=== PATIENT | male | born 1945 | race Caucasian/White ===

== ENCOUNTER → 2016-11-17 | Outpatient (CLI) | payer OTHER | LOC: FIMAGING 09:34 | DX: R10.11 Right upper quadrant pain (principal); K76.0 Fatty (change of) liver, not elsewhere classified; R94.5 Abnormal results of liver function studies ==

== ENCOUNTER 2018-09-21 10:44 | Inpatient (IN) | payer OTHER ==
--- NOTE | 2018-09-21 10:59 | PDHPUP ---
History & Physical Update H&P update statement: This history and physical update is based on an assessment of the patient which was completed after admission or registration (within 24 hours), but prior to the surgery/procedure. H&P update: H&P reviewed & patient examined, no change in patient's condition since H&P completed
[2018-09-21] MEDS ORDERED: ceFAZolin 2 GM/DEXTROSE 100 ML IV ONE (11:03)
[2018-09-21] MEDS ORDERED: LIDOCAINE 1% 2 ML INJ ID PRN (11:04)
[2018-09-21] MEDS ORDERED: LR 1,000 ML IV ONE (11:04)
[2018-09-21] MEDS ORDERED: BUPIVACAINE 0.5% 30 ML SDV ONE (11:38)
[2018-09-21] MEDS ORDERED: HYDROCODONE/APAP 5/325 TAB PO PRN (12:27)
[2018-09-21] MEDS ORDERED: ACETAMINOPHEN 500 MG TAB PO PRN ×2 (12:27→13:17)
[2018-09-21] MEDS ORDERED: NALOXONE HCL 0.4 MG/ML INJ IVP PRN (12:27)
[2018-09-21] MEDS ORDERED: PROMETHAZINE HCL 25 MG/ML INJ IVP PRN (12:27)
[2018-09-21] MEDS ORDERED: ONDANSETRON 4 MG/2 ML VIAL IVP PRN (12:27)
[2018-09-21] MEDS ORDERED: fentaNYL 100 MCG/2 ML INJ IVP PRN (12:27)
[2018-09-21] MEDS ORDERED: MEPERIDINE 25 MG/0.5 ML AMP IVP PRN (12:27)
--- NOTE | 2018-09-21 12:27 | PDANEPAE ---
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 - Pulmonary History Hx COPD: No Hx Asthma/Reactive Airway Disease: No Hx Recent Upper Respiratory Infection: Yes Hx Oxygen in Use at Home: Yes O2 in Use at Home (L/minute): 3.5 Hx Sleep Apnea: Yes Sleep Apnea Screening Result - Last Documented: Positive Pulmonary History Comment: pnermonia tx'd with antibiotics - Neurologic History Hx Cerebrovascular Accident: Yes Hx Seizures: No Hx Dementia: No Neurologic History Comment: 2014 - Endocrine History Hx Diabetes: Yes Obesity: moderate Endocrine History Comment: hypothyroid - Renal History Hx Renal Disorders: No - Liver History Hx Hepatic Disorders: No - Neurological & Psychiatric Hx Hx Neurological and Psychiatric Disorders: No - Cancer History Hx Cancer: No - Congenital Disorder History Hx Congenital Disorders: No - GI History Hx Gastrointestinal Disorders: No - Chronic Pain History Chronic Pain: No - Surgical History Prior Surgeries: 2 open heart surgeries, mitral valve repair triple, roght leg wound surgery, hernia x 2, ANE Review of Systems Review of Systems: - Exercise capacity METS (RN): 3 METS ANE Patient History - Allergies Allergies/Adverse Reactions: codeine Allergy (Verified 09/21/18 11:20) Vomiting dapagliflozin propanediol [From [facility]] Allergy (Verified 09/21/18 11:20) morphine Allergy (Verified 09/21/18 11:20) Vomiting Penicillins Allergy (Verified 09/21/18 11:20) Swelling/neck,face,throat Sulfa (Sulfonamide Antibiotics) Allergy (Verified 09/21/18 11:20) Swelling/neck,face,throat - Home Medications Home medications: home medication list seen and reviewed Home Medications: Ascorbic Acid [Vitamin C 500 mg (*)] 1,000 mg PO DAILY 03/23/16 [Last Taken ] Carvedilol [Coreg (*)] 25 mg PO BIDMEAL 03/23/16 [Last Taken 09/21/18] Cholecalciferol Vit D3 [Vitamin D3 (*)] 2,000 units PO DAILY 03/23/16 [Last Taken 09/20/18] Cyanocobalamin [Vitamin B12 (*)] 1,000 mcg PO DAILY 03/23/16 [Last Taken ] Diltiazem HCl [Cartia XT 240mg] 240 mg PO BIDMEAL 03/23/16 [Last Taken 09/21/18] Furosemide [Lasix 20 MG (*)] 20 mg PO DAILY 03/23/16 [Last Taken 09/20/18] Herbals/Supplements -Info Only 1 each PO DAILY 03/23/16 [Last Taken 03/23/16] Metformin HCl [Metformin 1000 mg] 1,000 mg PO BIDMEAL 03/23/16 [Last Taken 09/20 09:00] Prazosin HCl 5 mg PO BIDMEAL 03/23/16 [Last Taken 09/20/18 09:00] Rivaroxaban [Xarelto] 20 mg PO HS 03/23/16 [Last Taken 09/20/18] glipiZIDE [Glipizide] 10 mg PO BIDMEAL 03/23/16 [Last Taken 09/20/18 09:00] Acetaminophen [Tylenol ES 500 mg (*)] 500 mg PO TID PRN 09/20/18 [Last Taken 21:00] Aspirin [Aspirin 81mg (*)] 81 mg PO DAILY 09/21/18 [Last Taken 09/20/18] Atorvastatin Calcium [Lipitor 40 mg (*)] 80 mg PO DAILY18 09/21/18 [Last Taken 09/19/18] Ferrous Sulfate [Ferrous Sulf 325 MG (*)] 325 mg PO DAILY 09/21/18 [Last Taken 09/20/18] Irbesartan [Avapro 150 mg (*)] 300 mg PO DAILY 09/21/18 [Last Taken 09/21/18] - NPO status NPO Status: no food or drink >8 hours NPO Since - Liquids (Date): 09/21/18 NPO Since - Liquids (Time): 08:00 NPO Since - Solids (Date): 09/20/18 NPO Since - Solids (Time): 19:30 - Anes Hx Anes Hx: no prior problems - Smoking Hx Smoking Status: Former smoker - Family Anes Hx Family Hx Anesthesia Complications: none ANE Labs/Vital Signs - Labs Result Diagrams: 09/21/18 11:40 - Vital Signs Blood Pressure: 67/43 Heart Rate: 84 Respiratory Rate: 18 O2 Sat (%): 95 Height: 162.56 cm Weight: 101.151 kg ANE Physical Exam - Airway Mallampati Score: Class 3 Mouth exam: dentures - Pulmonary Pulmonary: no respiratory distress, no rales or rhonchi, clear to auscultation - Cardiovascular Cardiovascular: irregularly irregular - ASA Status ASA Status: III ANE Anesthesia Plan Anesthesia Plan: MAC
[2018-09-21] MEDS ORDERED: fentaNYL 100 MCG/2 ML INJ ONE (12:31)
[2018-09-21] MEDS ORDERED: PROPOFOL 200 MG/20 ML VIAL ONE (12:31)
[2018-09-21] MEDS ORDERED: LIDOCAINE 2% 5 ML SDV ONE (12:44)
[2018-09-21] MEDS ORDERED: LIDOCAINE 1% 300 MG/30 ML SDV ONE (12:51)
--- NOTE | 2018-09-21 13:17 | POSTOPPROG ---
Post Op Note Date of Operation: 09/21/18 Surgeon: Anibal Garza Anesthesiologist: Tawanna Anesthesia: IV Sedation Pre-op Diagnosis: Left lower leg wound Post-op Diagnosis: same Procedure: excisional skin debridement 4x6cm down to muscle Findings: necrotic area removed, underying tissue well pefused and pink Inf/Abcess present in the surg proc area at time of surgery?: No EBL: Minimal Drains: Wound Vac Specimen(s): left lower leg skin
[2018-09-21] MEDS ORDERED: HYDROmorphONE/DILAUDID 1 MG/ML INJ IVP PRN (13:19)
--- NOTE | 2018-09-21 13:23 | POSTANESTH ---
Post Anesthetic Evaluation Cardiovascular Status: Similar to Pre-Op Cond Respiratory Status: Similar to Pre-op Cond. Level of Consciousness/Mental Status: Can Participate in Eval, Moderately Sleepy Pain Control: Adequate, Prn Tx Ordered Nausea/Vomiting Control: Adequate, Prn Tx Ordered Complications Possibly Related to Anesthesia: None Noted
[2018-09-21] MEDS ORDERED: NS 1,000 ML IV SCH (13:30)
[2018-09-21] MEDS: PRAZOSIN HCL 5 MG CAP PO SCH (18:29)
[2018-09-21] MEDS: glipiZIDE 10 MG TAB PO SCH (18:29)
[2018-09-21] MEDS: CARVEDILOL 25 MG TAB PO SCH (18:30)
[2018-09-21] MEDS: metFORMIN HCL 500 MG TAB PO SCH (18:32)
[2018-09-21] MEDS: ATORVASTATIN CALCIUM 40 MG TAB PO SCH (18:32)
[2018-09-21] MEDS: DILTIAZEM XR 240 MG CAP PO SCH (18:32)
[2018-09-21] MEDS: oxyCODONE IR 5 MG TAB PO PRN (18:33)
[2018-09-21] MEDS: RIVAROXABAN 20 MG TAB PO SCH (20:38)
[2018-09-21] MEDS: ACETAMINOPHEN 325 MG TAB PO PRN (20:38)
[2018-09-22] MEDS: oxyCODONE IR 5 MG TAB PO PRN ×4 (04:45→18:40)
[2018-09-22 05:07] LABS: PLATELET COUNT 200 10^3/uL (150-400)
[2018-09-22] MEDS ORDERED: Herbals/Supplements -Info Only PO SCH (09:00)
[2018-09-22] MEDS: FUROSEMIDE 20 MG TAB PO SCH (09:16)
[2018-09-22] MEDS: ASPIRIN 81 MG CHEWABLE TAB PO SCH (09:16)
[2018-09-22] MEDS: ASCORBIC ACID 500 MG TAB PO SCH (09:17)
[2018-09-22] MEDS: glipiZIDE 10 MG TAB PO SCH ×2 (09:17→18:25)
[2018-09-22] MEDS: PRAZOSIN HCL 5 MG CAP PO SCH ×2 (09:17→18:23)
[2018-09-22] MEDS: CHOLECALCIFEROL VIT D3 1,000 UNITS TAB PO SCH (09:17)
[2018-09-22] MEDS: FERROUS SULFATE 325 MG TAB PO SCH (09:17)
[2018-09-22] MEDS: CYANO/VITAMIN B12 1000 MCG TAB PO SCH (09:18)
[2018-09-22] MEDS: DILTIAZEM XR 240 MG CAP PO SCH ×2 (09:18→18:25)
[2018-09-22] MEDS: CARVEDILOL 25 MG TAB PO SCH ×2 (09:19→18:23)
[2018-09-22] MEDS: metFORMIN HCL 500 MG TAB PO SCH ×2 (09:20→18:25)
[2018-09-22] MEDS ORDERED: HYDROmorphONE/DILAUDID 1 MG/ML INJ IVP ONE (11:30)
[2018-09-22] MEDS: IRBESARTAN 150 MG TAB PO SCH (12:06)
--- NOTE | 2018-09-22 12:19 | ASMTCMCOM ---
CM Note CM Note Notes: Reviewed chart, pt admitted for scheduled surgery for LE wound. He will go to surgery for debridement and wound vac placement. Dc needs unclear, CM w/f. Lives at home with his . DC Plan: TBD Date Signed: 09/22/2018 12:18 PM Electronically Signed By:Gretel Escoto RN
[2018-09-22] MEDS: ACETAMINOPHEN 325 MG TAB PO PRN ×2 (14:15→22:27)
--- NOTE | 2018-09-22 14:51 | SOAPPROG ---
SOAP Progress Note Assessment/Plan: Assessment: 73yo M s/p LLE debridement for chronic, non-healing wound - vitals are stable - when not manipulated, he has little pain. He accidently removed the suction connection earlier today. RN had to re-do the VAC, this was excruciatingly painful and required IV narcotics - setting up home care and VAC - will stay in hospital for IV pain control. Will likely stay until Tuesday and we rechange the VAC to see if he tolerates it any better, he has a very low pain tolerance Plan: 09/22/18 14:49 Subjective: pulled juan diego pad out of VAC today Objective: Vital Signs Temp Pulse Resp BP Pulse Ox 36.8 C 79 16 135/71 H 96 09/22/18 12:00 09/22/18 12:00 09/22/18 12:00 09/22/18 12:06 09/22/18 12:00 Microbiology 09/21/18 13:01 Gram Stain - Final Leg - Eswab 09/21/18 13:01 Mycobacterial Smear (JAMI) - Final Leg - Eswab Mycobacterial Culture - Final Laboratory Results 09/22/18 04:14 09/22/18 04:14 ICD10 Worksheet Patient Problems: Problems Problem Status Onset Cellulitis Acute Decubitus ulcer Acute Ulcer of leg, chronic, right Acute
--- NOTE | 2018-09-22 16:07 | ASMTCMCOM ---
CM Note CM Note Notes: Spoke w/surgeon, pt will need home wound vac. Paperwork filled out and signed by ART CRUM faxed to [facility]. Per MD, pt will be here through Tuesday. Met with pt and , want to make sure homecare is in network, CM sent referral to [facility] but they don't have staffing, CM sent other refferals. DC Plan:Home care Date Signed: 09/22/2018 04:06 PM Electronically Signed By:Gretel Escoto RN
--- NOTE | 2018-09-22 17:15 | PDMN ---
Medical Necessity Medical necessity: Pt meets inpt criteria per MD order and 73 y/o w/LLE chronic/ non-healing wound admitted 09/21/18 for LLE wound surg: excisional skin debridement 4x6cm down to muscle, necrotic area removed, wound vac applied. Upgraded to inpt for control of severe pain requiring IV pain meds in addition to PO pain meds, required wound vac re-do today as pt accidentally removed suction connection today. PMHx includes afib, DM type 2, chronic kidney disease , HTN, stroke, HLD, PA, infectious endocarditis, cardiac bypass in 1999, wound debridement, skin graft to RLE. Est LOS>2MN for ongoing wound care and pain management.
--- NOTE | 2018-09-22 17:17 | ASMTCMCOM ---
CM Note CM Note Notes: Patient has been accepted by [facility], please call Yesenia with any questions [phone]. DC Plan: Home w/[facility] and wound vac ([facility]) Date Signed: 09/22/2018 05:16 PM Electronically Signed By:Gretel Escoto RN
[2018-09-22] MEDS: ATORVASTATIN CALCIUM 40 MG TAB PO SCH (18:25)
[2018-09-22] MEDS: RIVAROXABAN 20 MG TAB PO SCH (21:59)
[2018-09-23] MEDS: ACETAMINOPHEN 325 MG TAB PO PRN ×2 (02:56→15:34)
[2018-09-23] MEDS: CARVEDILOL 25 MG TAB PO SCH ×2 (08:56→18:24)
[2018-09-23] MEDS: DILTIAZEM XR 240 MG CAP PO SCH ×2 (08:56→18:23)
[2018-09-23] MEDS: glipiZIDE 10 MG TAB PO SCH ×2 (08:56→18:23)
[2018-09-23] MEDS: CYANO/VITAMIN B12 1000 MCG TAB PO SCH (08:57)
[2018-09-23] MEDS: PRAZOSIN HCL 5 MG CAP PO SCH ×2 (08:57→18:24)
[2018-09-23] MEDS: metFORMIN HCL 500 MG TAB PO SCH ×2 (08:57→18:23)
[2018-09-23] MEDS: ASPIRIN 81 MG CHEWABLE TAB PO SCH (08:57)
[2018-09-23] MEDS: ASCORBIC ACID 500 MG TAB PO SCH (08:57)
[2018-09-23] MEDS: CHOLECALCIFEROL VIT D3 1,000 UNITS TAB PO SCH (08:57)
[2018-09-23] MEDS: FERROUS SULFATE 325 MG TAB PO SCH (08:58)
[2018-09-23] MEDS: IRBESARTAN 150 MG TAB PO SCH (08:58)
[2018-09-23] MEDS: FUROSEMIDE 20 MG TAB PO SCH (09:41)
[2018-09-23] MEDS: oxyCODONE IR 5 MG TAB PO PRN ×3 (09:41→18:24)
--- NOTE | 2018-09-23 12:54 | SOAPPROG ---
SOAP Progress Note Assessment/Plan: Assessment: 73yo M s/p LLE debridement for chronic, non-healing wound - vitals are stable - a little bit more painful today, output is minimal and serosanguineous. - the wound is buttressed appropriately, I have subsequently placed a supplemental boot to that extremity as well which I think will help as he shuffles his feet a lot when he is in bed. - given pain, needs to stay here until VAC change on Tuesday. Plan: 09/22/18 14:49 09/23/18 12:53 Subjective: Doing well, VAC is holding Objective: Vital Signs Temp Pulse Resp BP Pulse Ox 36.5 C 89 16 135/85 H 97 09/23/18 07:06 09/23/18 08:56 09/23/18 07:06 09/23/18 08:58 09/23/18 07:06 Microbiology 09/21/18 13:01 Gram Stain - Final Leg - Eswab Laboratory Results 09/22/18 04:14 09/22/18 04:14 09/22/18 09/23/18 09/24/18 05:59 05:59 05:59 Intake Total 350 Output Total 250 Balance 100 ICD10 Worksheet Patient Problems: Problems Problem Status Onset Cellulitis Acute Decubitus ulcer Acute Ulcer of leg, chronic, right Acute
[2018-09-23] MEDS: ATORVASTATIN CALCIUM 40 MG TAB PO SCH (18:23)
[2018-09-23] MEDS: ONDANSETRON 4 MG/2 ML VIAL IVP PRN (18:24)
[2018-09-23] MEDS: RIVAROXABAN 20 MG TAB PO SCH (20:16)
[2018-09-24] MEDS: oxyCODONE IR 5 MG TAB PO PRN ×4 (06:28→21:58)
[2018-09-24] MEDS: ONDANSETRON DISINTEGRATING 4 MG TAB PO PRN ×4 (06:30→21:59)
[2018-09-24] MEDS: ONDANSETRON 4 MG/2 ML VIAL IVP PRN ×3 (06:41→22:15)
[2018-09-24] MEDS: ASCORBIC ACID 500 MG TAB PO SCH (09:06)
[2018-09-24] MEDS: CHOLECALCIFEROL VIT D3 1,000 UNITS TAB PO SCH (09:06)
[2018-09-24] MEDS: CARVEDILOL 25 MG TAB PO SCH ×2 (09:06→17:53)
[2018-09-24] MEDS: IRBESARTAN 150 MG TAB PO SCH (09:07)
[2018-09-24] MEDS: glipiZIDE 10 MG TAB PO SCH ×2 (09:07→17:53)
[2018-09-24] MEDS: DILTIAZEM XR 240 MG CAP PO SCH ×2 (09:07→17:53)
[2018-09-24] MEDS: CYANO/VITAMIN B12 1000 MCG TAB PO SCH (09:07)
[2018-09-24] MEDS: FUROSEMIDE 20 MG TAB PO SCH (09:07)
[2018-09-24] MEDS: PRAZOSIN HCL 5 MG CAP PO SCH ×2 (09:08→17:53)
[2018-09-24] MEDS: FERROUS SULFATE 325 MG TAB PO SCH (09:08)
[2018-09-24] MEDS: ASPIRIN 81 MG CHEWABLE TAB PO SCH (09:08)
[2018-09-24] MEDS: metFORMIN HCL 500 MG TAB PO SCH ×2 (09:08→17:53)
--- NOTE | 2018-09-24 09:30 | SOAPPROG ---
SOAP Progress Note Assessment/Plan: Assessment: 73yo M s/p LLE debridement for chronic, non-healing wound - vitals are stable - refusing narcotic pain meds - restless - VAC looks good, change tomorrow. Hopefully will go well and dc after that c home care Plan: 09/22/18 14:49 09/23/18 12:53 09/24/18 09:29 Subjective: didnt sleep much last night, refusing pain meds Objective: Vital Signs Temp Pulse Resp BP Pulse Ox 37.1 C 89 16 116/90 H 91 L 09/24/18 07:02 09/24/18 09:07 09/24/18 07:02 09/24/18 09:07 09/24/18 07:02 Microbiology 09/21/18 13:01 Gram Stain - Final Leg - Eswab Laboratory Results 09/22/18 04:14 09/22/18 04:14 09/23/18 09/24/18 09/25/18 05:59 05:59 05:59 Intake Total 350 1000 Output Total 250 Balance 100 1000 ICD10 Worksheet Patient Problems: Problems Problem Status Onset Cellulitis Acute Decubitus ulcer Acute Ulcer of leg, chronic, right Acute
[2018-09-24] MEDS: ATORVASTATIN CALCIUM 40 MG TAB PO SCH (17:53)
--- NOTE | 2018-09-24 20:27 | GOP ---
[f rep st] OPERATIVE REPORT DATE OF OPERATION: 09/21/2018 SURGEON: Anibal Garza MD INSTRUCTOR BRIDGE: None. ANESTHESIA: IV sedation. ANESTHESIOLOGIST: Jimmie Stacy MD. PREOPERATIVE DIAGNOSIS: Chronic nonhealing left lower leg wound. POSTOPERATIVE DIAGNOSIS: Chronic nonhealing left lower leg wound. PROCEDURE PERFORMED: Excisional skin debridement 4 x 6 cm down to exposed muscle. FINDINGS: Necrotic area removed. Underlying tissue was well perfused and pink with good healthy-kim earing muscle. SPECIMENS: Left lower leg skin. ESTIMATED BLOOD LOSS: 10 cc. DESCRIPTION OF PROCEDURE: The patient was greeted in the preoperative suite. Once again, risks, svetlana efits, and alternatives were discussed. Consent was signed. He was then brought back to the operati ve suite, placed on the OR table in supine position. After all anesthesia machines including SCDs we re on and functioning, World Health Organization time-out was performed. After successful induction of anesthesia, the patient's left lower leg was prepped and draped in typical sterile fashion. I com menced the procedure by making an elliptical incision around the necrotic area. I carried this down through the subcutaneous tissue down to good healthy appearing bleeding muscular tissue. The specime n was removed and passed off. Hemostasis was achieved with a combination of gentle pressure and elec trocautery. A wound VAC was then brought into place. The skin was successfully window framed and th e black sponge was placed to the area. It was attached to suction at 125 mmHg which was well tolerat ed by the patient. A field block was performed with 0.25% Marcaine without epinephrine. The patient was then gently awoken and taken from the operative suite to the PACU in satisfactory condition. DRAINS: None. INSTRUMENT COUNT: All counts were reported as correct x2. /[id number]/MODL
[2018-09-24] MEDS: RIVAROXABAN 20 MG TAB PO SCH (20:36)
[2018-09-25] MEDS: oxyCODONE IR 5 MG TAB PO PRN ×3 (02:52→14:23)
[2018-09-25] MEDS: ONDANSETRON DISINTEGRATING 4 MG TAB PO PRN ×3 (02:54→14:22)
[2018-09-25] MEDS: ONDANSETRON 4 MG/2 ML VIAL IVP PRN ×2 (03:20→10:26)
[2018-09-25] MEDS: metFORMIN HCL 500 MG TAB PO SCH (08:24)
[2018-09-25] MEDS: PRAZOSIN HCL 5 MG CAP PO SCH (08:25)
[2018-09-25] MEDS: CARVEDILOL 25 MG TAB PO SCH (08:25)
[2018-09-25] MEDS: DILTIAZEM XR 240 MG CAP PO SCH (08:25)
[2018-09-25] MEDS: CYANO/VITAMIN B12 1000 MCG TAB PO SCH (08:25)
[2018-09-25] MEDS: ASPIRIN 81 MG CHEWABLE TAB PO SCH (08:25)
[2018-09-25] MEDS: ASCORBIC ACID 500 MG TAB PO SCH (08:25)
[2018-09-25] MEDS: CHOLECALCIFEROL VIT D3 1,000 UNITS TAB PO SCH (08:26)
[2018-09-25] MEDS: glipiZIDE 10 MG TAB PO SCH (08:26)
[2018-09-25] MEDS: IRBESARTAN 150 MG TAB PO SCH (08:26)
[2018-09-25] MEDS: FERROUS SULFATE 325 MG TAB PO SCH (08:26)
[2018-09-25] MEDS: FUROSEMIDE 20 MG TAB PO SCH (08:26)
[2018-09-25] MEDS ORDERED: LIDOCAINE 2% JELLY 20 ML (UROJECT) UR ONE (09:00)
[2018-09-25] MEDS ORDERED: LIDOCAINE HCL 4% TOPICAL SOLN 50ML TP ONE (09:25)
[2018-09-25] MEDS ORDERED: HYDROmorphONE/DILAUDID 1 MG/ML INJ IVP PRN (09:29)
[2018-09-25 11:05] VITALS: BP 156/71
--- NOTE | 2018-09-25 12:01 | PDIAF ---
- Diagnosis Diagnosis: Left lower leg non-healing wound Code Status: Full Code - Medication Management Discharge Medications: electronically signed and located in the Home Medication List. - Orders Services needed: Home Care, Registered Nurse Home Care Face to Face: I certify that this patient was under my care and that I had the required [id number] encounter meeting the encounter requirements on the discharge day. My findings support the fact that the patient is homebound as defined in Home Care Face to Face Continued: CMS Chapter 7 Medicare Benefits Manual 30.1.1 , The condition of the patient is such that there exists a normal inability to leave home and consequently, leaving home would require a considerable and taxing effort. Diet Recommendation: no restrictions on diet Diet Texture: Regular Texture Diet Additional Instructions: Keep the VAC on at all times, you can bathe as long as the area does not get wet Ibuprofen and Tylenol as needed for pain, Oxycodone for breakthrough Take 10mg oxycodone 45 minutes before VAC changes are scheduled Home health will change the VAC 3x week, [facility] next week for re-eval - Follow Up Care Current Providers and Referrals: [facility] [Other] W[facility] Healing Center,[facility] [Clinic] - (make an appt with me next week on the 3rd for re-eval)
--- NOTE | 2018-09-25 12:22 | WOCRNPDOC ---
WOCRN Advanced Assessment Note - Skin Integrity Problem, Advanced Assess Left Lower Lateral Leg Surgical Wound/Incision Dressing Type: Black Vac Foam, Wound Vac Dressing Description: Clean/Dry, Intact Integumentary Issue Intervention: Dressing Changed Tomas Wound Tissue: Ecchymotic (at 9, 10 and 2-3 oclock) Wound Bed Constitution: Granulation Tissue (10%), Smooth Tissue (10%), Tendon ( 20%), Muscle (60%) Wound Edges: Attached, Well Defined Site Odor: None Site Measurement - Head-to-Toe Length X Width X Depth (cm): 6.5x4.7x0.4 Skin Integrity Problem Comment: Lidocaine 4% instilled into vac dressing prior to removal for pain management. Wound cleaned with ns and gauze. Skin prep and draped tomas wound. One piece small white foam placed to cover tendon and one piece small [place] black foam placed overall. Suction at -125 mm Hg with no leaks noted. BRIDGER Mcmahon and at bedside for change. Dr Garza in at end and aware of findings. Overall tolerated well by patient. Wound care will follow. Next vac change tuesday.
--- NOTE | 2018-09-25 12:40 | ASDISCHSUM ---
Discharge Information Plan Status:Home with Home Health Medically Cleared to Leave:09/25/2018 Discharge Date:09/25/2018 CM D/C Disposition:Home Health Service ADT D/C Disposition:Home Health Service Projected Discharge Date:09/25/2018 11:00 AM Transportation at D/C:Family Discharge Delay Reason: Follow-Up Date:09/25/2018 11:00 AM Discharge Slot: Final Diagnosis: Placement Information Referral Type:*Home Health Care Services Referral ID:[id number] Provider Name:[facility] [place] Address 1:[address] Phone Number: Address 2: Fax Number: [facility]:[place] Selection Factors: State:[place] Patient Contact Information Contact Name:MERCEDES Relationship: Address:[address] City:[place] Alternate Phone: State/Zip Code:[place] [address] Email: Financial Information Financial Class:[employer] [facility] Primary Plan Number:[id number] Secondary Plan Desc:MEDICARE INPATIENT Secondary Plan Number:[id number] Assessment Information LACE LACE Length of stay for Answers: 3 days current admission Acuity / Level of Answers: Yes Care: Did the patient have an inpatient admission? Comorbidities - select Answers: Cerebrovascular disease all that apply (CVA, TIA, aneurysms, vasc ular dementia) Diabetes (uncontrolled or controlled) Moderate or severe liver or renal disease Other Notes: Afib # of Emergency department Answers: 0 visits in the last 6 months Score: 13 Date Signed: 09/25/2018 12:38 PM Electronically Signed By:ANNIE Brown [facility] CM Progress Note CM Note CM Note Notes: Reviewed chart, pt admitted for scheduled surgery for LE wound. He will go to surgery for debridement and wound vac placement. Dc needs unclear, CM w/f. Lives at home with his . DC Plan: TBD Date Signed: 09/22/2018 12:18 PM Electronically Signed By:Gretel Escoto RN [facility] CM Progress Note CM Note CM Note Notes: Spoke w/surgeon, pt will need home wound vac. Paperwork filled out and signed by , ART faxed to [facility]. Per MD, pt will be here through Tuesday. Met with pt and , want to make sure homecare is in network, CM sent referral to [facility] but they don't have staffing, CM sent other refferals. DC Plan:Home care Date Signed: 09/22/2018 04:06 PM Electronically Signed By:Gretel Escoto RN [facility] Progress Note CM Note CM Note Notes: Patient has been accepted by [facility], please call Yesenia with any questions [phone]. DC Plan: Home w/[facility] and wound vac ([facility]) Date Signed: 09/22/2018 05:16 PM Electronically Signed By:Gretel Escoto RN Intervention Information
--- NOTE | 2018-09-26 10:38 | ASMTDCNOTE ---
Case Management Discharge Discharge Order Complete? Answers: Yes Patient to Obtain Answers: via Family Medications Transportation Arranged Answers: Family/Friends Discharge Comments Notes: Pt is discharging home today with his . D/C order, meds sent to [facility]. [facility] was notified by phone as well. Pt [facility]. [facility] paperwork signed and faxed to [employer]. Copy in chart and to pt. Pt's is transporting. Date Signed: 09/26/2018 10:32 AM Electronically Signed By:ANNIE Galeana
== END 2018-09-25 14:28 | disposition home health service (06) | DRG 581 ==
LOC: F3N 10:44 → F3E 13:33 → OBSVTOIN 09-22 16:58
PROVIDERS: ADMIT Surgery; ATTEND Surgery
PROC: 0KBT0ZZ Excision of Left Lower Leg Muscle, Open Approach (ICD-10-PCS; principal; 2018-09-21 12:30)
DX: L97.329 Non-pressure chronic ulcer of left ankle with unspecified severity (principal); I48.91 Unspecified atrial fibrillation; E11.9 Type 2 diabetes mellitus without complications; I12.9 Hypertensive chronic kidney disease with stage 1 through stage 4 chronic kidney disease, or unspecified chronic kidney disease; N18.9 Chronic kidney disease, unspecified; E03.9 Hypothyroidism, unspecified; E78.5 Hyperlipidemia, unspecified; I25.2 Old myocardial infarction; Z86.73 Personal history of transient ischemic attack (TIA), and cerebral infarction without residual deficits
CPT/HCPCS: 97116-GP; 97161-GP; 97530-GP; G0378; J0690; J1170; J2405; J2704; J3010

== ENCOUNTER 2018-10-07 12:32 | Emergency (ER) | payer OTHER ==
--- NOTE | 2018-10-07 13:05 | EDPHY ---
H & P Stated Complaint: Wound Check Time Seen by Provider: 10/07/18 12:40 HPI/ROS: [ CHIEF COMPLAINT: Worsening left leg wound HISTORY OF PRESENT ILLNESS: 73-year-old male with extensive medical history, most notably chronic wound to his left distal calf which is followed by the wound center. Patient had wound debridement in the operating room by Dr. Sean Forbes 09/21/2018 has been receiving home health care. Home health nurse became concerned about increasing area of necrotic appearing tissue to the wound which appears to have migrated medially and recommend he come to the ER for evaluation. The daughter who is a nurse at [employer] spoke with Dr. Ary Flores this morning who recommend she come to the ER for evaluation. PHYSICAL EXAM (Prior to examination, patient consented to physical exam, hands were washed and my usual and customary physical exam procedures followed) 1) GENERAL: Well-developed, well-nourished, alert and oriented. Appears to be in no acute distress. 2) HEAD: Normocephalic 3) HEENT: sclera anicteric 4) LUNGS: Breathing comfortably. 5) SKIN: Left lower extremity: The distal calf dorsal aspect circular lesion with no fetid odor, minimal drainage, no lymphangitic streaking, soft compartments, no crepitus. Necrotic appearing tissue on the periphery. - Personal History Current Tetanus/Diphtheria Vaccine: Unsure Current Tetanus Diphtheria and Acellular Pertussis (TDAP): Unsure - Medical/Surgical History Hx Asthma: No Hx Chronic Respiratory Disease: No Hx Diabetes: Yes Hx Cardiac Disease: Yes Hx Renal Disease: Yes Hx Cirrhosis: No Hx Alcoholism: No Hx HIV/AIDS: No Hx Splenectomy or Spleen Trauma: No Other PMH: AFIB/STENTS/BYPASS/Mitral valve repair/CVA/LEG ULCERS/INFECTIONS - Social History Smoking Status: Former smoker Constitutional: Initial Vital Signs Temperature (C) 36.5 C 10/07/18 12:37 Heart Rate 77 10/07/18 12:37 Respiratory Rate 18 10/07/18 12:37 Blood Pressure 97/51 L 10/07/18 12:37 O2 Sat (%) 95 10/07/18 12:37 O2 Delivery Mode Room Air Allergies/Adverse Reactions: codeine Allergy (Verified 09/21/18 11:20) Vomiting dapagliflozin propanediol [From [facility]] Allergy (Verified 09/21/18 11:20) morphine Allergy (Verified 09/21/18 11:20) Vomiting Penicillins Allergy (Verified 09/21/18 11:20) Swelling/neck,face,throat Sulfa (Sulfonamide Antibiotics) Allergy (Verified 09/21/18 11:20) Swelling/neck,face,throat Home Medications: Medication Instructions Recorded Ascorbic Acid [Vitamin C 500 mg 1,000 mg PO DAILY 03/23/16 (*)] Carvedilol [Coreg (*)] 25 mg PO BIDMEAL 03/23/16 Cholecalciferol Vit D3 [Vitamin D3 2,000 units PO DAILY 03/23/16 (*)] Cyanocobalamin [Vitamin B12 (*)] 1,000 mcg PO DAILY 03/23/16 Diltiazem HCl [Cartia XT 240mg] 240 mg PO BIDMEAL 03/23/16 Furosemide [Lasix 20 MG (*)] 20 mg PO DAILY 03/23/16 Herbals/Supplements -Info Only 1 each PO DAILY 03/23/16 Metformin HCl [Metformin 1000 mg] 1,000 mg PO BIDMEAL 03/23/16 Prazosin HCl 5 mg PO BIDMEAL 03/23/16 Rivaroxaban [Xarelto] 20 mg PO HS 03/23/16 glipiZIDE [Glipizide] 10 mg PO BIDMEAL 03/23/16 Acetaminophen [Tylenol ES 500 mg 500 mg PO TID PRN 09/20/18 (*)] Aspirin [Aspirin 81mg (*)] 81 mg PO DAILY 09/21/18 Atorvastatin Calcium [Lipitor 40 80 mg PO DAILY18 09/21/18 mg (*)] Ferrous Sulfate [Ferrous Sulf 325 325 mg PO DAILY 09/21/18 MG (*)] Irbesartan [Avapro 150 mg (*)] 300 mg PO DAILY 09/21/18 Lidocaine HCl [Lidocaine HCl 4% 10 ml TP Q3D PRN #3 bottle 09/25/18 Topical Soln (*)] Ondansetron Odt [Zofran Odt] 4 mg PO Q4H PRN #30 tab 09/25/18 oxyCODONE IR [Oxycodone Ir (*)] 5 - 10 mg PO Q6H PRN #30 tab 09/25/18 Medical Decision Making ED Course/Re-evaluation: 1:00 p.m.: I consulted with nurse practitioner Evelyn with [facility] will come to the ER to evaluation the patient. 1:53 p.m.: Nurse practitionerEvelyn has evaluated the patient in the ER and consulted with Dr. Ary Flores. They feel the patient can go home and follow up on Tuesday (today is Tuesday) with Dr. Anibal Garza to plan for OR wound debridement. Patient feels comfortable being discharged. Patient feels comfortable being discharged. All questions and concerns addressed by myself. Patient given my usual and customary discharge precautions and instructions regarding their clinical impression. Care of patient under supervision of secondary supervising physician Dr Sandeep Hughes. Departure - Departure Disposition: Home, Routine, Self-Care Clinical Impression: Encounter for wound care Condition: Good Instructions: Pressure Injury (ED) Additional Instructions: Return to the ER if you develop redness, swelling, discharge, warmth to the wound, red streaks going up your arm, or any other symptoms that concern you. Referrals: Anibal Garza MD [Medical Doctor] - 10/10/18
[2018-10-07 14:16] VITALS: BP 97/40
--- NOTE | 2018-10-07 14:31 | GCON ---
[f rep st] CONSULTATION CHIEF COMPLAINT: Left lower extremity wound. HISTORY OF PRESENT ILLNESS: The patient is a 73-year-old male with multiple comorbidities who underwent excisional biopsy of a left lower extremity ulceration with wound VAC placement. He was subsequently sent home with home health. The patient inadvertently dismantled his wound VAC 2 nights in a row and the decision was made to discontinue the wound VAC. The patient saw Dr. Garza in the office on Tuesday of this past week for concern of increased erythema around the wound. The patient was placed on a course of Keflex. The patient and his now present to the emergency department complaining of worsening necrotic tissue extending from the wound posteriorly. The patient denies fever and chills. He does endorse worsening pain. He is currently taking oxycodone and Tylenol every 6 hours. This does little to improve his pain, however, per 's report if she gives him a higher dose of oxycodone the patient is not safe at home. MEDICAL HISTORY: Diabetes, hypertension, CKD, history of stroke, hypothyroidism , history of MN, infectious endocarditis. SURGICAL HISTORY: Multiple bilateral lower extremity debridements, right hernia repair, cataract surgery, trigger hand surgery, CABG surgery, cardiac stents. MEDICATIONS: Carvedilol 25 mg, diltiazem 240 mg, prazosin HCL 5 mg, irbesartan 300 mg, furosemide 20 mg, metformin 1000 mg, glipizide 10 mg, Trulicity 0.5 mg weekly, Xarelto 20 mg, atorvastatin 80 mg, baby aspirin, multivitamins. ALLERGIES: Penicillin, sulfa, codeine. REVIEW OF SYSTEMS: Ten-point review of systems was performed and is negative, aside from what is in the HPI. PHYSICAL EXAM: GENERAL: Well-appearing, well-nourished, elderly male, resting comfortably on a stretcher in no acute distress. HEENT: Normocephalic, atraumatic. No gross hearing deficits. Mucous membranes moist, PERRLA. CARDIAC: Irregular rate. CHEST: Breath sounds are equal and clear to auscultation bilaterally. ABDOMEN: Soft, nondistended, nontender. PSYCHIATRIC : Appropriate mood and affect. NEUROLOGIC: Alert and oriented. LEFT LOWER EXTREMITY: Wound measures 6 x 4 cm. It has good central granulation. There is an area of tissue necrosis superior laterally. There is an additional area of necrosis that extends from the posterior aspect of the wound around the back of the ankle. There is slight erythema. The patient has strong pedal pulses. IMPRESSION AND PLAN: This is a 73-year-old male with multiple comorbidities who presents to the emergency department complaining of worsening left lower extremity wound. The patient has no fever or chills. He has strong pedal pulses. I have given the patient and his two options. One option being hospital admission with IV pain control and surgical debridement tomorrow morning. Another option would be for the patient to go home, which I think is perfectly safe and to follow up with Dr. Garza on Tuesday in the office. He will definitely need further surgical debridement, but this can be planned as an outpatient. He has chosen the later option. He should continue all of his blood thinners, as well as the Keflex that he is on. The patient's knows to call with any worsening symptoms or with new fever or chills. I discussed this case with Dr. Flores, who agrees with plan. /[id number]/MODL MTDD
--- NOTE | 2018-10-10 16:24 | ASMTCMCOM ---
CM Note CM Note Notes: Pt is a 73 y/o man admitted for LLE ulcer/cellulitis. Pt went to surgery and had a wound vac placed. CM left a msg for pts Magalie (P#: [phone]) and requested a call back. Pts works within the [employer] system. Pt with a hx of a stroke and TBI. Pt may need placement and can be very impulsive, according to Dr. Garza. Pt had a sitter when CM went to visit w/ pt. CM to follow. Plan: TBD Date Signed: 10/10/2018 04:23 PM Electronically Signed By:CELSO Vargas
--- NOTE | 2018-10-11 10:24 | ASMTCMCOM ---
CM Note CM Note Notes: CM spoke w/ pts Brenda in person today. 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 Her cell is [phone]. Brenda will get recommendations from Pauly Lux, another [employer] [facility] employee of SNF rehab. Therapies have been ordered and awaiting recommendations. Brenda reports that she cannot care for him at home. Brenda reports that pt has been impulsive ever since he had the surgery and wound vac placed. CM to follow. Plan: TBD Date Signed: 10/11/2018 10:23 AM Electronically Signed By:CELSO Vargas
== END 2018-10-07 14:31 | disposition home or self-care (01) ==
DX: L97.221 Non-pressure chronic ulcer of left calf limited to breakdown of skin (principal); Z88.2 Allergy status to sulfonamides

== ENCOUNTER 2018-10-09 12:14 | Inpatient (IN) | payer OTHER ==
--- NOTE | 2018-10-09 13:22 | GCON ---
[f rep st] CONSULTATION DATE OF CONSULTATION: 10/09/2018 CHIEF COMPLAINT: Left lower extremity cellulitis with an open wound. HISTORY OF PRESENT ILLNESS: This is a 73-year-old male, well-[facility] Briefly, he has a fair amount of medical comorbidities and I have been following him there for about a month with a left lower extremity ulcer. It had gotten worse. I took him to the operating room 2 weeks ago for debridement and wound VAC placement. This went well. He spent the remainder of the week in the hospital and subsequently went home. Given his previous stroke, he went home and was unable to care for the back. This was subsequently discontinued and we elected to place Hydrofera to the wound bed. I evaluated this last week in the clinic and the wound bed actually looked good. He did have a little cellulitis around the area and was on antibiotics from previous emergency room visit for that. He states that over the weekend it got acutely worse. He presented to the emergency department over the weekend as well. He was evaluated there. Antibiotics were decided to continue. He presents today stating that he denies any fevers or chills. His , Magalie, is at bedside. States that it looks acutely worse. They have been placing the Hydrofera to the area and taking the oral antibiotics as prescribed. I evaluated him in the clinic today. It is acutely worse. The decision was made to admit him. PAST MEDICAL HISTORY: Atrial fibrillation, type 2 diabetes, chronic kidney disease, hypothyroidism, hypertension, hyperlipidemia, stroke, MA, history of infectious endocarditis. PAST SURGICAL HISTORY: History of cardiac bypass in 1999, bilateral inguinal hernia repair, trigger finger release, cataract surgery, multiple cardiac stents , right-sided leg wound debridement in 2015 with subsequent split-thickness skin graft and a left-sided wound debridement performed in September of this year. FAMILY HISTORY: Noncontributory. SOCIAL HISTORY: He is retired and disabled. His is at bedside. CURRENT MEDICATIONS: Include carvedilol, diltiazem, prazosin, irbesartan, furosemide, metformin, glipizide, Trulicity, Xarelto, atorvastatin, vitamin D3, aspirin, vitamin B12, vitamin C, iron. ALLERGIES: Include penicillin, sulfa, Farxiga, codeine and morphine. REVIEW OF SYSTEMS: A full 10-point review was performed. PHYSICAL EXAM: VITAL SIGNS: Temperature 98.6, heart rate is 58, blood pressure was 149/87. CONSTITUTIONAL: He is in no apparent distress and appears comfortable. HEENT: Eyes, his pupils equal, round, and reactive to light and accommodation. He has anicteric sclerae. His extraocular movements are intact. Ears, nose, mouth, throat, he has moist mucous membranes. His hearing is normal. He has normal dentition. CARDIOVASCULAR: He has a regular rate and rhythm without any murmurs. RESPIRATORY: He has no respiratory distress, rales, or rhonchi. GI: Abdomen is soft and nondistended with normoactive bowel sounds. SKIN: The left lower extremity ulceration has increased to 7 x 5 cm. The wound bed is no longer good granulation, but has a significant amount of central slough. There is some eschar on the superior and inferior edges. There is also increasing amount of cellulitis circumferentially around the leg. There appears to be no underlying fluid collections. MUSCULOSKELETAL: Full strength. The area is very tender around this ulceration on the left lower extremity. NEUROLOGIC: He is alert and oriented x3. His cranial nerves 2-12 are intact. He has no weakness, no numbness. PSYCH: He is interacting appropriately. He is not anxious or encephalopathic. LYMPH/HEME/IMMUNOLOGIC: He has no cervical, groin or supraclavicular lymphadenopathy appreciated. LABS: None. IMAGING: None. ASSESSMENT/PLAN: 73-year-old male with multiple medical comorbidities and worsening cellulitis around an open wound in the left lower extremity. The decision was made to admit him to the hospitalist service at the hospital for IV antibiotics. I have consulted Infectious Disease to consult on the patient. I do feel as though he will need to go to the operating room for repeat debridement and have subsequently scheduled him for this tomorrow. Plan for IV antibiotics today. Elevation of the lower extremity. Resumption of home medications. Will likely replace a wound VAC as it worked in the past quite well actually. The issue with him going home was that he did not have 24-hour supervision and would subsequently pull this off. He may need to have some placement in a facility after this in order to have someone monitor this more closely. /[id number]/MODL MTDD
[2018-10-09] MEDS ORDERED: ONDANSETRON DISINTEGRATING 4 MG TAB PO PRN (13:40)
[2018-10-09] MEDS ORDERED: ONDANSETRON 4 MG/2 ML VIAL IVP PRN (13:40)
[2018-10-09] MEDS ORDERED: MECLIZINE HCL 25 MG TAB PO PRN (13:48)
[2018-10-09] MEDS ORDERED: D50W 25 GM/50 ML SYR IVP PRN (13:53)
[2018-10-09] MEDS: HYDROmorphONE/DILAUDID 1 MG/ML INJ IVP PRN (14:04)
[2018-10-09 14:38] LABS: PLATELET COUNT 327 10^3/uL (150-400)
[2018-10-09] MEDS: LINEZOLID 600 MG TAB PO SCH ×2 (15:23→21:24)
[2018-10-09] MEDS ORDERED: oxyCODONE IR 5 MG TAB PO SCH (16:00)
--- NOTE | 2018-10-09 16:38 | PDCONSULT ---
Burner Technician Note: Infectious Diseases Consult Note Impression: 73-year-old man with LLE chronic wound with superimposed infection. Only bacteria recovered from debridement in September was Enterococcus faecalis, which would not respond to cephalosporin antibiotics likely underlying progression. Penicillin allergy limits agents available for use. No contraindication to oral therapy. 1. Probable LLE chronic wound infection; Probable Enterococcus faecalis infection 2. 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 History of mitral valve endocarditis s/p mitral valve repain (1993) 4. Diabetes mellitus, type II 5. History of RLE wounds requiring skin grafting and antibiotics (2016) Plan: 1. Start linezolid 600mg PO BID 2. Reviewed in detail potential side effects of linezolid to include: allergy, rash, nausea, antibiotic-associated diarrhea, Clostridioides difficile colitis, thrombocytopenia, anemia, bone marrow suppression, neuropathy, retinopathy. 3. ID to follow Castillo Guo MD Infectious Diseases Chief Complaint: Worsening pain in LLE Requesting Provider: Dr. Garza Reason for Referral: Consultation was requested by Dr. Garza regarding antimicrobial management. HPI: 73-year-old man who was admitted with increasing pain and necrotic tissue on the left lower extremity chronic wound. Chronology of Present Illness: Most recent date identified as normal health: August 2018 Location of symptoms: LLE Onset of symptoms: Worsening pain over the 3-4 days prior to admission Initial signs/symptoms: Initial wound caused by an abrasion in July 2018 ( patient's 's history), first medical note regarding LLE wound dated 08.24.18 Associated signs/symptoms at onset: Localized pain and irritation with no infectious signs or symptoms Changes since onset: Wound area has progressed since August 2018, even after surgical debridement on 09.21.18 down to muscle tissue. Wound vac placed initially but patient removed tubing, then the entire dressing Exacerbating factors: Dressing changes and pressure on the wound worsen the pain Relieving factors: None identified Antibiotics since symptom onset: cephalexin (09.30.-5..) Change in symptoms with antibiotics: No improvement. Increased pain and increase in necrotic tissue. Developed 2-3 loose bowel movements daily after starting cephalexin course. Relevant social history: None Relevant PMHx/PSHx: Anaphylactoid reaction with penicillins. Tolerates cephalosporins of all generations. Reviewed patient medical records in [facility] and [place] [employer] ([facility]). Travel history: Originally from [place] Past Medical History: Minto mitral valve endocarditis (1993); Stroke with short -term memory impairment Past Surgical History: Mitral valve repair secondary to bacterial endocarditis ( 1993); CABG; RLE skin grafting to chronic wound Social History: Does not use tobacco products; Does not consume marijuana products; Drinks alcohol socially; Does not use any other drugs currently or in the past Family History: No family members with recurrent infections Allergies: Penicillins Medications: Reviewed in medical record and confirmed with patient. ROS: 10 organ systems reviewed; pertinent positives and negatives listed in the HPI, all other organ systems negative. Physical Exam: VS: Reviewed Gen: No acute distress; Breathing comfortably without supplemental oxygen; Able to speak in complete sentences Eyes: No conjunctival injection; No scleral icterus HENT: No gross deformities Neck: No limitation in range of motion Pulm: Audible inspiratory sounds to the bases bilaterally; No wheeze, rhonchi, or rales CV: Normal S1 and S2; Regular rate and rhythm; No murmurs, rubs, or gallops; No lower extremity edema Abd: Not distended; Normo-active bowel sounds; Soft; Non-tender Skin: A full skin exam including exposed bilateral upper extremities, bilateral lower extremities to the knees, face, neck, abdomen, chest, and back performed; Skin intact, warm, with no rash MSK: LLE dressing not taken completely off due to adherent dressing to the wound ; Well-healed LLE wounds. Ext: No clubbing or cyanosis Neuro: Awake and alert Psych: Normal mood and blunted affect Labs/Imaging: All microbiology testing (culture and non-culture) reviewed in the medical record. Personally reviewed and interpreted the images of the following radiographs: No imaging available for review. Discussed treatment/diagnostic testing and testing results with admitting provider(s). Ongoing monitoring for antimicrobial toxicity with: CBC, BMP, interval historical information, and interval physical exam. [id number] time with patient: 70 minutes with >50% of [id number]-sy-bnop time spent in counseling, patient education, and coordinating care. Counseling provided included the microbiology of skin and soft tissue infections, Enterococcus faecalis infections, expected time to resolution, natural history without treatment, and side effects of treatment.
[2018-10-09] MEDS: HYDROCODONE/APAP 5/325 TAB PO PRN (17:10)
[2018-10-09] MEDS ORDERED: NS 500 ML IV ONE ×2 (17:13→17:16)
[2018-10-09] MEDS ORDERED: HALOPERIDOL 2 MG TAB PO PRN (17:14)
--- NOTE | 2018-10-09 17:15 | PDGENHP ---
History and Physical - Chief Complaint LLE ulcer / cellulitis - History of Present Illness 73 yo male with multiple medical problems directly admitted to the hospital from wound care clinic due to worsening infection in his LLE wound. He has had chronic b/l LE wounds, with prior h/o RLE wound requiring surgical debridement and skin graft. He underwent LLE operative debridement in 09/[address] Garza and a wound vac was placed. He was unable to care for this at home and when his was gone, he pulled it out. Attempt was made to manage the wound with Hydrofera on the wound base, but it became infected and he was started on Cephalexin. Throughout the weekend, his condition worsened with increased redness and pain. He was evaluated by his surgeon and hospital admission was recommended for IV atbx and further operative debridement. He denies fevers/chills or rigors. No CP or SOB. No abdominal pain, N/V. He is afebrile on arrival. He is anticoagulated on Xarelto for chronic a fib and has a h/o ischemic heart disease with prior CABG and coronary stents. He also has diabetes, but maintains an a1c <7 on oral hypoglycemics. He is admitted to med/surg unit, labs will be drawn, ID consulted and plan is for OR in the morning. History Information - Allergies/Home Medication List Allergies/Adverse Reactions: codeine Allergy (Verified 09/21/18 11:20) Vomiting dapagliflozin propanediol [From [facility]] Allergy (Verified 09/21/18 11:20) morphine Allergy (Verified 09/21/18 11:20) Vomiting Penicillins Allergy (Verified 09/21/18 11:20) Swelling/neck,face,throat Sulfa (Sulfonamide Antibiotics) Allergy (Verified 09/21/18 11:20) Swelling/neck,face,throat Home Medications: Ascorbic Acid [Vitamin C 500 mg (*)] 1,000 mg PO DAILY 03/23/16 [Last Taken 11/22] Carvedilol [Coreg (*)] 25 mg PO BIDMEAL 03/23/16 [Last Taken 10/09/18] Cholecalciferol Vit D3 [Vitamin D3 (*)] 2,000 units PO DAILY 03/23/16 [Last Taken 10/09/18] Cyanocobalamin [Vitamin B12 (*)] 1,000 mcg PO DAILY 03/23/16 [Last Taken ] Diltiazem HCl [Cartia XT 240mg] 240 mg PO BIDMEAL 03/23/16 [Last Taken 10/09/18] Furosemide [Lasix 20 MG (*)] 20 mg PO DAILY 03/23/16 [Last Taken 10/09/18] Herbals/Supplements -Info Only 1 each PO DAILY 03/23/16 [Last Taken 03/23/16] Metformin HCl [Metformin 1000 mg] 1,000 mg PO BIDMEAL 03/23/16 [Last Taken 10/09] Prazosin HCl 5 mg PO BIDMEAL 03/23/16 [Last Taken 10/09/18] Rivaroxaban [Xarelto] 20 mg PO HS 03/23/16 [Last Taken 10/08/18] glipiZIDE [Glipizide] 10 mg PO BIDMEAL 03/23/16 [Last Taken 10/09/18] Aspirin [Aspirin 81mg (*)] 81 mg PO DAILY 09/21/18 [Last Taken 10/09/18] Atorvastatin Calcium [Lipitor 40 mg (*)] 80 mg PO DAILY18 09/21/18 [Last Taken 10/08/18] Ferrous Sulfate [Ferrous Sulf 325 MG (*)] 325 mg PO DAILY 09/21/18 [Last Taken 10/09/18] Irbesartan [Avapro 150 mg (*)] 300 mg PO DAILY 09/21/18 [Last Taken 10/09/18] Cephalexin [Keflex (*)] 500 mg PO QID 10/09/18 [Last Taken 10/09/18 09:00] Levothyroxine [Synthroid 100 mcg (*)] 100 mcg PO DAILY06 10/09/18 [Last Taken ] Meclizine HCl [Meclizine HCl 25 mg (RX,OTC)] 25 mg PO BID PRN 10/09/18 [Last Taken Unknown] Omeprazole 20 mg PO DAILY 10/09/18 [Last Taken 10/09/18] oxyCODONE IR [Oxycodone Ir (*)] 7.5 mg PO QID 10/09/18 [Last Taken 10/09/18 09: 00] I have personally reviewed and updated: family history, medical history, social history, surgical history - Past Medical History atrial fibrillation, coronary artery disease, cataracts, diabetes type 2, GERD, hypertension, hyperlipidemia - Surgical History Reports: coronary bypass surgery, hernia repair, coronary stent Additional surgical history: RLE wound debridement with skin graft. LLE wound debridement with wound vac 09/2018 - Family History Positive for: non-pertinent - Social History Smoking Status: Former smoker Alcohol Use: None Drug Use: None Additional social history: , at bedside Review of Systems Review of Systems: ROS: 10pt was reviewed & negative except for what was stated in HPI & below Physical Exam Physical Exam: Temp Pulse Resp BP Pulse Ox 37.1 C 79 18 95/39 L 94 10/09/18 15:39 10/09/18 15:39 10/09/18 15:39 10/09/18 15:39 10/09/18 15:39 O2 (L/minute) 2 Constitutional: no apparent distress, chronically ill appearing Eyes: PERRL Ears, Nose, Mouth, Throat: moist mucous membranes Cardiovascular: regular rate and rhythym Respiratory: no respiratory distress, clear to auscultation Gastrointestinal: normoactive bowel sounds, soft, non-tender abdomen Skin: warm, other (LLE with ~5-6 cm ulcer with necrotic edges and oozing, surrounding cellulitis. DP's detected by doppler, extremities warm) Musculoskeletal: full muscle strength Neurologic: AAOx3 Psychiatric: interacting appropriately Lab Data & Imaging Review 10/09/18 13:20 10/09/18 13:20 WBC 10.07 10^3/uL (3.80-9.50) H 10/09/18 13:20 RBC 3.54 10^6/uL (4.40-6.38) L 10/09/18 13:20 Hgb 9.9 g/dL (13.7-17.5) L 10/09/18 13:20 Hct 30.3 % (40.0-51.0) L 10/09/18 13:20 MCV 85.6 fL (81.5-99.8) 10/09/18 13:20 MCH 28.0 pg (27.9-34.1) 10/09/18 13:20 MCHC 32.7 g/dL (32.4-36.7) 10/09/18 13:20 RDW 13.2 % (11.5-15.2) 10/09/18 13:20 Plt Count 327 10^3/uL (150-400) 10/09/18 13:20 MPV 10.2 fL (8.7-11.7) 10/09/18 13:20 Neut % (Auto) 59.1 % (39.3-74.2) 10/09/18 13:20 Lymph % (Auto) 30.0 % (15.0-45.0) 10/09/18 13:20 [place] % (Auto) 9.3 % (4.5-13.0) 10/09/18 13:20 Eos % (Auto) 0.9 % (0.6-7.6) 10/09/18 13:20 Baso % (Auto) 0.4 % (0.3-1.7) 10/09/18 13:20 Nucleat RBC Rel Count 0.0 % (0.0-0.2) 10/09/18 13:20 Absolute Neuts (auto) 5.95 10^3/uL (1.70-6.50) 10/09/18 13:20 Absolute Lymphs (auto) 3.02 10^3/uL (1.00-3.00) H 10/09/18 13:20 Absolute Monos (auto) 0.94 10^3/uL (0.30-0.80) H 10/09/18 13:20 Absolute Eos (auto) 0.09 10^3/uL (0.03-0.40) 10/09/18 13:20 Absolute Basos (auto) 0.04 10^3/uL (0.02-0.10) 10/09/18 13:20 Absolute Nucleated RBC 0.00 10^3/uL (0-0.01) 10/09/18 13:20 Immature Gran % 0.3 % (0.0-1.1) 10/09/18 13:20 Immature Gran # 0.03 10^3/uL (0.00-0.10) 10/09/18 13:20 ESR 43 MM/HR (0-20) H 10/09/18 13:20 VBG Lactic Acid 3.2 mmol/L (0.7-2.1) H 10/09/18 14:30 Sodium 137 mEq/L (135-145) 10/09/18 13:20 Potassium 4.4 mEq/L (3.5-5.2) 10/09/18 13:20 Chloride 106 mEq/L (97-110) 10/09/18 13:20 Carbon Dioxide 19 mEq/l (22-31) L 10/09/18 13:20 Anion Gap 12 mEq/L (6-14) 10/09/18 13:20 BUN 19 mg/dL (7-23) 10/09/18 13:20 Creatinine 0.9 mg/dL (0.7-1.3) 10/09/18 13:20 Estimated GFR > 60 10/09/18 13:20 Glucose 94 mg/dL (70-100) 10/09/18 13:20 Hemoglobin A1c 6.8 % (4.0-6.0) H 10/09/18 13:20 Estim Average Glucose 148 mg/dL (68-126) H 10/09/18 13:20 Calcium 8.8 mg/dL (8.5-10.4) 10/09/18 13:20 Assessment & Plan Assessment: Severe sepsis 2/2 LLE cellulitis in setting of chronic wound - (HR, RR, lactate 3.2) - Will give 1 L NS fluid bolus now, but defer the 30 cc/kg bolus as his LV function is unknown and he has significant ischemic cardiac hx. Repeat bolus if lactate not trending down in 1 hr. Initial BP stable in 120's, but rpt SBP 90's noted, called RN, repeat SBP was 110's. -started on Zyvox by ID, appreciate assistance -NS bolus as above, cont maintenance IVF's -surgery to take to OR in am for debridement, NPO at midnight. -he is high risk for surgery, cannot achieve 4 METS, but this surgery is relatively low risk and is considered urgent in setting of sepsis and infection LLE cellulitis / wound - as above, failed outpt tx with Cephalexin Chronic A fib - rate controlled on Coreg and Dilt -halve coreg for now given lowish BP's in setting of sepsis, hold parameters on dilt -cont Xarelto for CVA prevention (he stroked last time Xarelto was held so would bridge if there was a need to hold his AC) DM type 2 - a1c 6.8% -hold MTF for now, cont glipizide and SSI if needed H/O CVA - cont ASA, Xarelto, statin H/O IA s/p CABG 1999 and prior coronary stents - stable, chest pain free -cont ASA, BB, statin Hypertension - well controlled -cont current regimen with hold parameters as above due to sepsis Hypothyroidism - cont levothyroxine GERD - PPI BPH - prazosin Full code Dispo - admit to inpt, anticipate >48 hrs hospitalization for management of severe sepsis, LLE cellulitis and chronic wound
[2018-10-09] MEDS: INSULIN LISPRO 100 UNIT/ML SC SCH (17:48)
[2018-10-09] MEDS: PRAZOSIN HCL 5 MG CAP PO SCH (17:56)
[2018-10-09] MEDS: glipiZIDE 10 MG TAB PO SCH (17:56)
[2018-10-09] MEDS: DILTIAZEM XR 240 MG CAP PO SCH (17:56)
[2018-10-09] MEDS: ATORVASTATIN CALCIUM 40 MG TAB PO SCH (17:56)
[2018-10-09] MEDS ORDERED: CARVEDILOL 25 MG TAB PO SCH (18:00)
[2018-10-09] MEDS: NS 1,000 ML IV SCH (19:02)
[2018-10-09] MEDS: RIVAROXABAN 20 MG TAB PO SCH (21:23)
[2018-10-09] MEDS: oxyCODONE IR 5 MG TAB PO SCH (21:23)
[2018-10-10] MEDS: HYDROmorphONE/DILAUDID 1 MG/ML INJ IVP PRN ×5 (02:22→13:48)
[2018-10-10 04:31] LABS: PLATELET COUNT 295 10^3/uL (150-400)
[2018-10-10] MEDS ORDERED: HYDROmorphONE/DILAUDID 1 MG/ML INJ IVP ONE (04:37)
[2018-10-10] MEDS: LEVOTHYROXINE 100 MCG TAB PO SCH (04:46)
--- NOTE | 2018-10-10 07:14 | CPEKG ---
Test Reason : OPEN Blood Pressure : / mmHG Vent. Rate : 097 BPM Atrial Rate : 000 BPM P-R Int : 176 ms QRS Dur : 088 ms QT Int : 499 ms P-R-T Axes : 000 044 000 degrees QTc Int : 634 ms Atrial fibrillation Inferior infarct, old Prolonged QT interval Confirmed by Bubba Paul ([id number]) on 10/10/2018 7:14:01 AM Referred By: Payal Rivero Confirmed By:Bubba Paul
[2018-10-10] MEDS ORDERED: BUPIVACAINE 0.5% 30 ML SDV ONE (07:42)
[2018-10-10] MEDS: oxyCODONE IR 5 MG TAB PO SCH ×3 (07:57→21:46)
[2018-10-10] MEDS: IRBESARTAN 150 MG TAB PO SCH (08:01)
[2018-10-10] MEDS: FUROSEMIDE 20 MG TAB PO SCH (08:01)
[2018-10-10] MEDS: DILTIAZEM XR 240 MG CAP PO SCH ×2 (08:01→17:13)
[2018-10-10] MEDS: CHOLECALCIFEROL VIT D3 1,000 UNITS TAB PO SCH (08:01)
[2018-10-10] MEDS: ASPIRIN 81 MG CHEWABLE TAB PO SCH (08:01)
[2018-10-10] MEDS: LINEZOLID 600 MG TAB PO SCH ×2 (08:02→20:14)
[2018-10-10] MEDS: PANTOPRAZOLE SODIUM 40 MG TAB PO SCH (08:02)
[2018-10-10] MEDS: CYANO/VITAMIN B12 1000 MCG TAB PO SCH (08:02)
[2018-10-10] MEDS: glipiZIDE 10 MG TAB PO SCH (08:03)
[2018-10-10] MEDS: FERROUS SULFATE 325 MG TAB PO SCH (08:03)
[2018-10-10] MEDS: INSULIN LISPRO 100 UNIT/ML SC SCH ×3 (08:03→18:17)
[2018-10-10] MEDS: PRAZOSIN HCL 5 MG CAP PO SCH ×2 (08:03→17:15)
[2018-10-10] MEDS: CARVEDILOL 25 MG TAB PO SCH ×2 (08:04→17:14)
[2018-10-10] MEDS: NS 1,000 ML IV SCH (08:13)
[2018-10-10] MEDS ORDERED: LR 1,000 ML IV ONE (10:13)
[2018-10-10] MEDS ORDERED: ALBUTEROL 3 ML DEYVIAL IH PRN (10:30)
[2018-10-10] MEDS ORDERED: ACETAMINOPHEN 500 MG TAB PO PRN (10:30)
[2018-10-10] MEDS ORDERED: ONDANSETRON 4 MG/2 ML VIAL IVP PRN (10:30)
[2018-10-10] MEDS ORDERED: HYDROmorphONE/DILAUDID 1 MG/ML INJ IVP PRN (10:30)
[2018-10-10] MEDS ORDERED: oxyCODONE IR 5 MG TAB PO PRN (10:30)
[2018-10-10] MEDS ORDERED: NALOXONE HCL 0.4 MG/ML INJ IVP PRN (10:30)
[2018-10-10] MEDS ORDERED: PROPOFOL/EMULSION 500 MG/50 ML BOTTLE IV ONE (10:53)
[2018-10-10] MEDS ORDERED: ONDANSETRON 4 MG/2 ML VIAL ONE ×2 (10:56→12:28)
[2018-10-10] MEDS ORDERED: fentaNYL 100 MCG/2 ML INJ ONE ×2 (10:56→11:59)
--- NOTE | 2018-10-10 11:51 | POSTOPPROG ---
Post Op Note Date of Operation: 10/10/18 Surgeon: Anibal Garza Anesthesiologist: Bunny Anesthesia: GET(General Endotracheal) Pre-op Diagnosis: LLE wound, cellulitis Post-op Diagnosis: same Procedure: Excisional debridement left lower leg Findings: eschar removed, wound measured 8x6cm, down to muscle Inf/Abcess present in the surg proc area at time of surgery?: No EBL: Minimal Drains: Wound Vac
--- NOTE | 2018-10-10 11:58 | POSTANESTH ---
Post Anesthetic Evaluation Cardiovascular Status: Normal, Stable Respiratory Status: Normal, Stable Level of Consciousness/Mental Status: Can Participate in Eval, Mildly Sleepy, Arousable Pain Control: Adequate, Prn Tx Ordered Nausea/Vomiting Control: Adequate, Prn Tx Ordered Complications Possibly Related to Anesthesia: None Noted
--- NOTE | 2018-10-10 11:58 | PDANEPAE ---
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 - Pulmonary History Hx COPD: No Hx Asthma/Reactive Airway Disease: No Hx Recent Upper Respiratory Infection: Yes Hx Oxygen in Use at Home: Yes O2 in Use at Home (L/minute): 2 Hx Sleep Apnea: No Sleep Apnea Screening Result - Last Documented: Positive Pulmonary History Comment: pnermonia tx'd with antibiotics - Neurologic History Hx Cerebrovascular Accident: Yes Hx Seizures: No Hx Dementia: No Neurologic History Comment: 2014 - Endocrine History Hx Diabetes: Yes Endocrine History Comment: hypothyroid - Renal History Hx Renal Disorders: No - Liver History Hx Hepatic Disorders: No - Neurological & Psychiatric Hx Hx Neurological and Psychiatric Disorders: No - Cancer History Hx Cancer: No - Congenital Disorder History Hx Congenital Disorders: No - GI History Hx Gastrointestinal Disorders: No - Chronic Pain History Chronic Pain: No - Surgical History Prior Surgeries: 2 open heart surgeries, mitral valve repair triple, roght leg wound surgery, hernia x 2, ANE Review of Systems Review of Systems: ANE Patient History - Allergies Allergies/Adverse Reactions: codeine Allergy (Verified 09/21/18 11:20) Vomiting dapagliflozin propanediol [From Farga] Allergy (Verified 09/21/18 11:20) morphine Allergy (Verified 09/21/18 11:20) Vomiting Penicillins Allergy (Verified 09/21/18 11:20) Swelling/neck,face,throat Sulfa (Sulfonamide Antibiotics) Allergy (Verified 09/21/18 11:20) Swelling/neck,face,throat - Home Medications Home Medications: Ascorbic Acid [Vitamin C 500 mg (*)] 1,000 mg PO DAILY 03/23/16 [Last Taken 11/22] Carvedilol [Coreg (*)] 25 mg PO BIDMEAL 03/23/16 [Last Taken 10/09/18] Cholecalciferol Vit D3 [Vitamin D3 (*)] 2,000 units PO DAILY 03/23/16 [Last Taken 10/09/18] Cyanocobalamin [Vitamin B12 (*)] 1,000 mcg PO DAILY 03/23/16 [Last Taken ] Diltiazem HCl [Cartia XT 240mg] 240 mg PO BIDMEAL 03/23/16 [Last Taken 10/09/18] Furosemide [Lasix 20 MG (*)] 20 mg PO DAILY 03/23/16 [Last Taken 10/09/18] Herbals/Supplements -Info Only 1 each PO DAILY 03/23/16 [Last Taken 03/23/16] Metformin HCl [Metformin 1000 mg] 1,000 mg PO BIDMEAL 03/23/16 [Last Taken 10/09] Prazosin HCl 5 mg PO BIDMEAL 03/23/16 [Last Taken 10/09/18] Rivaroxaban [Xarelto] 20 mg PO HS 03/23/16 [Last Taken 10/08/18] glipiZIDE [Glipizide] 10 mg PO BIDMEAL 03/23/16 [Last Taken 10/09/18] Aspirin [Aspirin 81mg (*)] 81 mg PO DAILY 09/21/18 [Last Taken 10/09/18] Atorvastatin Calcium [Lipitor 40 mg (*)] 80 mg PO DAILY18 09/21/18 [Last Taken 10/08/18] Ferrous Sulfate [Ferrous Sulf 325 MG (*)] 325 mg PO DAILY 09/21/18 [Last Taken 10/09/18] Irbesartan [Avapro 150 mg (*)] 300 mg PO DAILY 09/21/18 [Last Taken 10/09/18] Cephalexin [Keflex (*)] 500 mg PO QID 10/09/18 [Last Taken 10/09/18 09:00] Levothyroxine [Synthroid 100 mcg (*)] 100 mcg PO DAILY06 10/09/18 [Last Taken ] Meclizine HCl [Meclizine HCl 25 mg (RX,OTC)] 25 mg PO BID PRN 10/09/18 [Last Taken Unknown] Omeprazole 20 mg PO DAILY 10/09/18 [Last Taken 10/09/18] oxyCODONE IR [Oxycodone Ir (*)] 7.5 mg PO QID 10/09/18 [Last Taken 10/09/18 09: 00] - NPO status NPO Since - Liquids (Date): 10/10/18 NPO Since - Liquids (Time): 00:00 NPO Since - Solids (Date): 10/10/18 NPO Since - Solids (Time): 00:00 - Smoking Hx Smoking Status: Former smoker - Alcohol Use Alcohol Use: None - Family Anes Hx Family Hx Anesthesia Complications: none ANE Labs/Vital Signs - Labs Result Diagrams: 10/10/18 04:23 10/09/18 13:20 - Vital Signs Blood Pressure: 135/96 Heart Rate: 106 Respiratory Rate: 18 O2 Sat (%): 93 Height: 167.64 cm Weight: 101.151 kg ANE Physical Exam - Airway Neck exam: FROM Mallampati Score: Class 2 Mouth exam: normal dental/mouth exam, poor dentition - Pulmonary Pulmonary: clear to auscultation - Cardiovascular Cardiovascular: regular rate and rhythym ANE Anesthesia Plan Anesthesia Plan: MAC
[2018-10-10] MEDS ORDERED: HYDROmorphONE/DILAUDID 1 MG/ML INJ ONE (11:59)
[2018-10-10] MEDS: fentaNYL 100 MCG/2 ML INJ IVP PRN ×2 (12:05→12:16)
[2018-10-10] MEDS ORDERED: HYDROCODONE/APAP 5/325 TAB ONE (12:28)
[2018-10-10] MEDS: HYDROCODONE/APAP 5/325 TAB PO PRN (12:45)
--- NOTE | 2018-10-10 14:14 | PDMN ---
Medical Necessity Medical necessity: [facility] M160 Sepis, A-3 days: 73 yo directly admitted from wound care clinic for worsening infection to LLE wound in setting of recent debridement/skin graft. Infection being managed as outpt on antibx and wound clinic but developed increased redness and pain. Eval reveals severe sepsis w/ LLE cellulitis. Pt tachy, tachypneac, hypotensive w/ elevated lactate. ID and surgical consults. IVF. IV antibx. To OR for debridement. Pt high risk for surgery given multiple comorbidities. Meets [facility] IP criteria for sepsis w/ hemodynamic instability, failure of outpt tx, parenteral antimicrobial regimen must be implemented on inpatient basis. Hx CABG, afib, CAD, DM2, HTN, HLD, CVA , recent RLE wound debridement w/ skin graft and wound vac September 2018.
--- NOTE | 2018-10-10 17:10 | HOSPPROG ---
Hospitalist Progress Note Assessment/Plan: Severe sepsis 2/2 LLE cellulitis in setting of chronic wound - (HR, RR, lactate 3.2) - Lactate normalized. -cont zyvox per ID LLE cellulitis / wound - as above, failed outpt tx with Cephalexin. S/P operative debridement today, POD #0. -wound vac in place -atbx as above Chronic A fib - rate controlled on Coreg and Dilt -cont Xarelto for CVA prevention (he stroked last time Xarelto was held) DM type 2 - a1c 6.8%, bg's low today -stop glipizide, use SSI as needed -also holding metformin, will resume at dc H/O CVA - cont ASA, Xarelto, statin H/O [place] s/p CABG 1999 and prior coronary stents - stable, chest pain free -cont ASA, BB, statin Hypertension - well controlled -cont current regimen with hold parameters due to sepsis Hypothyroidism - cont levothyroxine GERD - PPI BPH - prazosin Full code Dispo - cont inpt Subjective: Pt feels fine post-op. Denies pain. No fevers/chills. No CP or SOB. Had low bg this am, but no symptoms. Objective: Vital Signs Temp Pulse Resp BP Pulse Ox 37.2 C 91 20 142/85 H 95 10/10/18 16:23 10/10/18 16:23 10/10/18 16:23 10/10/18 16:23 10/10/18 16:23 Laboratory Results 10/10/18 04:23 10/09/18 13:20 10/09/18 10/10/18 10/11/18 05:59 05:59 05:59 Intake Total 450 Output Total 435 Balance 15 - Physical Exam Constitutional: no apparent distress Eyes: PERRL Ears, Nose, Mouth, Throat: moist mucous membranes Cardiovascular: regular rate and rhythym Respiratory: no respiratory distress, reduced air movement Gastrointestinal: normoactive bowel sounds, soft, non-tender abdomen Skin: warm Musculoskeletal: full muscle strength, other (LLE wound with functioning wound vac) Neurologic: AAOx3 Psychiatric: interacting appropriately ICD10 Worksheet Patient Problems: Problems Problem Status Onset Cellulitis Acute Decubitus ulcer Acute Ulcer of leg, chronic, right Acute
[2018-10-10] MEDS: ATORVASTATIN CALCIUM 40 MG TAB PO SCH (17:15)
--- NOTE | 2018-10-10 18:21 | PCMIDPN ---
Assessment/Plan: Assessment/Plan: * Left lower extremity cellulitis in association with nonhealing wound status post debridement: Previous culture showing growth of Enterococcus faecalis. No clinical improvement with use of cephalosporins suggesting Enterococcus faecalis may be etiologic. Cellulitis previously demarcated has resolved post debridement and with linezolid therapy which he is tolerating well. Duration of antibiotic therapy dependent on clinical course of wound infection over time. * Penicillin allergy: Reviewed with patient noting hives over his face; has tolerated cephalosporins without difficulty. 10/10/18 18:18 Subjective: Patient without specific complaints. Wound VAC in place over left lower extremity. Objective: Vital Signs Temp Pulse Resp BP Pulse Ox 37.2 C 91 20 142/85 H 95 10/10/18 16:23 10/10/18 16:23 10/10/18 16:23 10/10/18 16:23 10/10/18 16:23 Laboratory Results 10/10/18 04:23 10/09/18 13:20 10/09/18 10/10/18 10/11/18 05:59 05:59 05:59 Intake Total 450 Output Total 435 Balance 15 ESR 43 MM/HR (0-20) H 10/09/18 13:20 Linezolid # 2 Blood cultures x2 no growth Wound culture 09/21/2018 Enterococcus faecalis - Physical Exam General Appearance: alert, no apparent distress, non-toxic EENT: No scleral icterus Extremities: inflammation (Erythema demarcated previously fully resolved; wound VAC in place with blood present under dressing) Abdomen: non-tender Lymphatic: other (No lymphangitis left thigh) ICD10 Worksheet Patient Problems: Problems Problem Status Onset Cellulitis Acute Decubitus ulcer Acute Ulcer of leg, chronic, right Acute
[2018-10-10] MEDS: RIVAROXABAN 20 MG TAB PO SCH (20:14)
[2018-10-10] MEDS: ACETAMINOPHEN 325 MG TAB PO PRN (20:14)
--- NOTE | 2018-10-10 21:23 | GOP ---
[f rep st] OPERATIVE REPORT DATE OF OPERATION: 10/10/2018 SURGEON: Anibal Garza MD AUTOMOBILE BRAKES BONDER: None. ANESTHESIA: General endotracheal. ANESTHESIOLOGIST: Cornelius Hollis DO PREOPERATIVE DIAGNOSIS: Left lower extremity wound. POSTOPERATIVE DIAGNOSIS: Left lower extremity wound. PROCEDURE PERFORMED: Excisional debridement of left lower extremity wound measuring 8 x 6 cm down to muscle. FINDINGS: The eschar ran inferomedially, as well as superiorly. This was taken down to good healthy bleeding muscle. Hemostasis was achieved with gentle pressure. Wound VAC was placed. SPECIMENS: None. ESTIMATED BLOOD LOSS: 10 cc. DESCRIPTION OF PROCEDURE: The patient was greeted in the preoperative suite. Once again, risks, svetlana efits, and alternatives were discussed. Consent was signed. He was then brought back to the operati ve suite, placed on the OR table in a supine position. After all anesthesia machines including SCDs were on and functioning, [employer] time-out was performed. His left leg after being sedated, was prepped and draped in typical sterile fashion. I commenced the procedure by 1st creatin g a field block using plain Marcaine. Once the field block was done, I removed the eschar sharply do wn to good healthy bleeding tissue with a 10 blade scalpel. Hemostasis was achieved with gentle pres sure. I then used a curette to gently debride the muscular wound bed down to good healthy bleeding m uscle. I found no other significant pathology. No fluid collections or anything that would to quant sydnie an abscess. I obtained hemostasis. I then placed drapes around the wound edges and placed it ba ck to the muscle. Drapes were then placed. It was attached to suction at 125 mmHg which was well to lerated by the patient. He was then gently awoken and taken to the PACU in satisfactory condition. DRAINS: Wound VAC. INSTRUMENT COUNT: All counts were correct x2. /[id number]/MODL
[2018-10-11] MEDS: ACETAMINOPHEN 325 MG TAB PO PRN (00:04)
[2018-10-11] MEDS: HYDROmorphONE/DILAUDID 1 MG/ML INJ IVP PRN ×3 (01:35→13:12)
[2018-10-11] MEDS ORDERED: LORazepam 0.5 MG TAB PO ONE (02:14)
[2018-10-11] MEDS ORDERED: LORazepam 2 MG/ML INJ IVP ONE ×2 (04:37→07:10)
[2018-10-11] MEDS: LEVOTHYROXINE 100 MCG TAB PO SCH (04:52)
--- NOTE | 2018-10-11 05:10 | HOSPPROG ---
Hospitalist Progress Note Assessment/Plan: Hospitalist night float note Called by RN regarding patient with increased restlessness and agitation. He is confused attempting to leave to go home. Patient has required sitter to ensure he does not remove his recently placed wound VAC. Patient was not able to discussed risks benefits of leaving AMA. Additionally patient called local PD. Patient has Haldol available on [employer] however review patient's EKG shows that his QTC is greater than 600. Will discontinue the Haldol. A single dose of Ativan has been ordered. RN did attempt to contact patient's left message on her phone. residential monitor will be put to place however if this should increased patient's agitation then will plan to obtain a repeat EKG. Will assess patient's current QT and removed as many medications potential for QT prolongation as possible. Objective: Vital Signs Temp Pulse Resp BP Pulse Ox 37.1 C 109 H 20 161/79 H 92 10/11/18 04:00 10/11/18 04:00 10/11/18 04:00 10/11/18 04:00 10/11/18 04:00 Laboratory Results 10/10/18 04:23 10/09/18 13:20 10/09/18 10/10/18 10/11/18 05:59 05:59 05:59 Intake Total 950 Output Total 835 Balance 115 ICD10 Worksheet Patient Problems: Problems Problem Status Onset Ulcer of leg, chronic, right Acute Decubitus ulcer Acute Cellulitis Acute
[2018-10-11 06:48] LABS: PLATELET COUNT 299 10^3/uL (150-400)
[2018-10-11] MEDS ORDERED: LORazepam 0.5 MG TAB PO PRN ×2 (07:41→16:22)
[2018-10-11] MEDS: FERROUS SULFATE 325 MG TAB PO SCH (08:27)
[2018-10-11] MEDS: PRAZOSIN HCL 5 MG CAP PO SCH ×2 (08:27→18:10)
[2018-10-11] MEDS: CYANO/VITAMIN B12 1000 MCG TAB PO SCH (08:27)
[2018-10-11] MEDS: ASPIRIN 81 MG CHEWABLE TAB PO SCH (08:27)
[2018-10-11] MEDS: FUROSEMIDE 20 MG TAB PO SCH (08:27)
[2018-10-11] MEDS: PANTOPRAZOLE SODIUM 40 MG TAB PO SCH (08:27)
[2018-10-11] MEDS: LINEZOLID 600 MG TAB PO SCH ×2 (08:27→21:17)
[2018-10-11] MEDS: DILTIAZEM XR 240 MG CAP PO SCH ×2 (08:27→18:10)
[2018-10-11] MEDS: CHOLECALCIFEROL VIT D3 1,000 UNITS TAB PO SCH (08:28)
[2018-10-11] MEDS: IRBESARTAN 150 MG TAB PO SCH (08:28)
[2018-10-11] MEDS: LORazepam 2 MG/ML INJ IVP PRN ×2 (08:29→13:13)
[2018-10-11] MEDS: INSULIN LISPRO 100 UNIT/ML SC SCH ×3 (08:34→18:25)
[2018-10-11] MEDS: oxyCODONE IR 5 MG TAB PO SCH ×3 (08:40→21:17)
[2018-10-11] MEDS: CARVEDILOL 25 MG TAB PO SCH ×2 (09:22→18:10)
--- NOTE | 2018-10-11 15:13 | SOAPPROG ---
SOAP Progress Note Assessment/Plan: Assessment/Plan: 73yo M POD#1 s/p LLE debridement skin/soft tissue with wound vac placement Increased behavioral problems and agitation overnight Improved after his Magalie arrived this am Wound vac not functioning due to blood clot in sponge. 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 Flores. S: very agitated and upset this am. Called local police overnight. combative to nurses O: laying in bed, not combative at this time and cooperative with care Wound vac dressing removed with clot in sponge. Actively oozing from wound bed. cauterized with silver nitrate. Thrombix applied. No necrosis of wound edges. No surrounding erythema. Lacy ecchymosis present Objective: Vital Signs Temp Pulse Resp BP Pulse Ox 37.2 C 97 18 131/62 H 92 10/11/18 12:30 10/11/18 12:30 10/11/18 12:30 10/11/18 12:30 10/11/18 12:30 Laboratory Results 10/11/18 05:25 10/09/18 13:20 10/10/18 10/11/18 10/12/18 05:59 05:59 05:59 Intake Total 950 Output Total 835 Balance 115 ICD10 Worksheet Patient Problems: Problems Problem Status Onset Cellulitis Acute Decubitus ulcer Acute Ulcer of leg, chronic, right Acute
--- NOTE | 2018-10-11 15:21 | WOCRNPDOC ---
WOCRN Advanced Assessment Note - Skin Integrity Problem, Advanced Assess Left Lower Leg Venous Stasis Ulcer Dressing Type: Wound Vac Dressing Description: Intact Integumentary Issue Intervention: Dressing Changed Wound Bed Color: [place], Red, Yellow Site Odor: None Skin Integrity Problem Comment: Entered the room after wound vac dressing had been removed by Dr Flores who was holding pressure on wound due to some small wound bleeding. Silver nitrate attempted by Dr Flores though discontinued due to patient discomfort. Thrombix applied to areas continuing to bleed with wet to dry over top, secured by ABD, Kerlix, and stretch netting. Per Dr Flores's instructions returned later in the day to attempt wound vac placement. Unable to place vac due to continued bleeding. Dr Flores notified. More Thrombix placed on bleeding areas and wet to dry dressing placed. BRIDGER Cee notified. Dr Flores will reevaluate tomorrow. Wound care will follow.
[2018-10-11] MEDS ORDERED: HALOPERIDOL LACT 5 MG/ML INJ IVP PRN (16:20)
--- NOTE | 2018-10-11 16:27 | HOSPPROG ---
Hospitalist Progress Note Assessment/Plan: Severe sepsis 2/2 LLE cellulitis in setting of chronic wound - (HR, RR, lactate 3.2) - Lactate normalized. -cont zyvox per ID LLE cellulitis / wound - as above, failed outpt tx with Cephalexin. S/P operative debridement today, POD #1. Wound vac came off today with resultant bleeding. Now has wet to dry dressing -wound vac removed due to malfunction due to blood clot, then had bleeding which was cauterized -now has hemostatic gauze with pressure dressing -wound care following, may have wound vac reapplied tomorrow, though he has pulled these off in the past -atbx as above -pain control: schedule max dose tylenol, try to minimize opiates as below Chronic A fib - rate controlled on Coreg and Dilt -cont Xarelto for CVA prevention (he stroked last time Xarelto was held) DM type 2 - a1c 6.8%, bg was low yest 56, better today -stopped glipizide, use SSI as needed -also holding metformin, will resume at dc H/O CVA - cont ASA, Xarelto, statin H/O [place] s/p CABG 1999 and prior coronary stents - stable, chest pain free -cont ASA, BB, statin Hypertension - well controlled -cont current regimen with hold parameters due to sepsis Hypothyroidism - cont levothyroxine Agitation - haldol held last night due to prolonged QT (>600), QTc much better on repeat EKG today (460). He is quite confused with IV ativan. -will re-order low dose haldol prn for agitation, prefer to avoid bzds though low dose ativan available if needed -order to rpt ekg in 1 hr if he receives haldol to recheck QTC (probably won' t tolerate telemetry) -will also decrease scheduled oxy, was on 7.5 mg QID at home, decreased to 5 mg TID here GERD - PPI BPH - prazosin Full code Dispo - cont inpt Subjective: Pt sleeping after receiving IV ativan and IV dilaudid this afternoon. He awakens confused, doesn't know where he is, wants to go back to sleep. No fevers. The wound vac malfunctioned and is now off, had some bleeding issues, controlled with silver nitrate. Objective: Vital Signs Temp Pulse Resp BP Pulse Ox 37.2 C 97 18 131/62 H 92 10/11/18 12:30 10/11/18 12:30 10/11/18 12:30 10/11/18 12:30 10/11/18 12:30 Laboratory Results 10/11/18 05:25 10/09/18 13:20 10/10/18 10/11/18 10/12/18 05:59 05:59 05:59 Intake Total 950 Output Total 835 Balance 115 - Physical Exam Constitutional: no apparent distress Eyes: PERRL Ears, Nose, Mouth, Throat: moist mucous membranes Cardiovascular: regular rate and rhythym Respiratory: no respiratory distress, clear to auscultation Gastrointestinal: normoactive bowel sounds, soft, non-tender abdomen Skin: warm Musculoskeletal: full muscle strength, other (LLE dressing partially saturated, but reportedly hasn't spread) Psychiatric: encephalopathic ICD10 Worksheet Patient Problems: Problems Problem Status Onset Cellulitis Acute Decubitus ulcer Acute Ulcer of leg, chronic, right Acute
--- NOTE | 2018-10-11 17:54 | PCMIDPN ---
Assessment/Plan: Assessment/Plan: * Left lower extremity cellulitis in association with nonhealing wound status post debridement: Previous culture showing growth of Enterococcus faecalis. No clinical improvement with use of cephalosporins suggesting Enterococcus faecalis may be etiologic. No visible cellulitis where previously demarcated but large area covered by dressing which was not removed due to patient's issues with wound bleeding earlier today. Continue linezolid with plans to discontinue tomorrow if no signs or symptoms of infection. * Penicillin allergy: Reviewed with patient noting hives over his face; has tolerated cephalosporins without difficulty. * Delirium: Reviewed with who notes this has been present on previous hospitalizations as well. Doubt related to antimicrobial use. 10/11/18 17:54 Subjective: Patient agitated overnight. Received Ativan overnight for his agitation. Reviewed with his who notes this has been present on prior admissions in September. Agitation significantly less prominent when his is present. Objective: Vital Signs Temp Pulse Resp BP Pulse Ox 36.9 C 91 16 127/59 H 92 10/11/18 16:00 10/11/18 16:00 10/11/18 16:00 10/11/18 16:00 10/11/18 16:00 Laboratory Results 10/11/18 05:25 10/09/18 13:20 10/10/18 10/11/18 10/12/18 05:59 05:59 05:59 Intake Total 950 Output Total 835 Balance 115 ESR 43 MM/HR (0-20) H 10/09/18 13:20 Linezolid # 3 Blood cultures x2 no growth - Physical Exam General Appearance: non-toxic, other (Sleepy without agitation) Extremities: inflammation (Left lower extremity dressed with some blood present on dressing; no cellulitis in areas where previously demarcated, nontender to palpation in these regions) Skin: other (IV without signs of phlebitis) ICD10 Worksheet Patient Problems: Problems Problem Status Onset Cellulitis Acute Decubitus ulcer Acute Ulcer of leg, chronic, right Acute
[2018-10-11] MEDS: ATORVASTATIN CALCIUM 40 MG TAB PO SCH (18:10)
--- NOTE | 2018-10-11 18:30 | CPEKG ---
Test Reason : OPEN Blood Pressure : / mmHG Vent. Rate : 099 BPM Atrial Rate : 000 BPM P-R Int : 155 ms QRS Dur : 100 ms QT Int : 364 ms P-R-T Axes : 000 027 032 degrees QTc Int : 468 ms Atrial fibrillation Inferior infarct, old Confirmed by Bubba Paul ([id number]) on 10/11/2018 6:30:10 PM Referred By: Payal Rivero Confirmed By:Bubba Paul
[2018-10-11] MEDS: ACETAMINOPHEN 500 MG TAB PO SCH (21:17)
[2018-10-11] MEDS: RIVAROXABAN 20 MG TAB PO SCH (21:17)
[2018-10-12] MEDS: LEVOTHYROXINE 100 MCG TAB PO SCH (05:19)
[2018-10-12] MEDS: ACETAMINOPHEN 500 MG TAB PO SCH ×3 (05:19→21:02)
[2018-10-12] MEDS: HYDROmorphONE/DILAUDID 1 MG/ML INJ IVP PRN ×3 (05:19→22:55)
[2018-10-12] MEDS: INSULIN LISPRO 100 UNIT/ML SC SCH ×3 (08:20→17:41)
[2018-10-12] MEDS: oxyCODONE IR 5 MG TAB PO SCH ×3 (08:28→21:02)
[2018-10-12] MEDS: IRBESARTAN 150 MG TAB PO SCH (08:29)
[2018-10-12] MEDS: CHOLECALCIFEROL VIT D3 1,000 UNITS TAB PO SCH (08:29)
[2018-10-12] MEDS: FUROSEMIDE 20 MG TAB PO SCH (08:30)
[2018-10-12] MEDS: ASPIRIN 81 MG CHEWABLE TAB PO SCH (08:30)
[2018-10-12] MEDS: FERROUS SULFATE 325 MG TAB PO SCH (08:30)
[2018-10-12] MEDS: LINEZOLID 600 MG TAB PO SCH (08:30)
[2018-10-12] MEDS: DILTIAZEM XR 240 MG CAP PO SCH ×2 (08:30→18:01)
[2018-10-12] MEDS: CARVEDILOL 25 MG TAB PO SCH ×2 (08:30→18:01)
[2018-10-12] MEDS: PANTOPRAZOLE SODIUM 40 MG TAB PO SCH (08:31)
[2018-10-12] MEDS: PRAZOSIN HCL 5 MG CAP PO SCH ×2 (08:31→18:01)
[2018-10-12] MEDS: CYANO/VITAMIN B12 1000 MCG TAB PO SCH (08:31)
[2018-10-12] MEDS ORDERED: LIDOCAINE HCL 4% TOPICAL SOLN 50ML TP ONE (08:55)
--- NOTE | 2018-10-12 10:08 | HOSPPROG ---
Hospitalist Progress Note Assessment/Plan: 73 yo male with multiple medical problems directly admitted to the hospital from wound care clinic due to worsening infection in his LLE wound. First encounter, chart reviewed. Discussed his care w Dr Rivero who cared for him yesterday. *Severe sepsis 2/2 LLE cellulitis in setting of chronic wound -resolved -Zyvox *LLE cellulitis / wound -failed outpt tx with Cephalexin. - S/P operative debridement POD #2 -will eventually need wound vac replaced *Chronic A fib - rate controlled on Coreg and Dilt -cont Xarelto for CVA prevention (he stroked last time Xarelto was held) *DM type 2 - a1c 6.8%, bg was low yest 56, better today -stopped glipizide, use SSI as needed -also holding metformin, will resume at dc *H/O CVA - cont ASA, Xarelto, statin *H/O [place] s/p CABG 1999 and prior coronary stents - stable, chest pain free -cont ASA, BB, statin *Hypertension - well controlled -cont current regimen with hold parameters due to sepsis *Hypothyroidism - cont levothyroxine * delirium, Agitation -doing overall well w low dose Haldol but still sedated from this (was held initially due to long QT) -avoid benzo's due to sedation -in addition, his oxy was decreased to 5 mg TID (had been on 7.5 mg qid) -consider zyprexa if needed ( to read up on int) -he is calm, cooperative this morning, alert and oriented to place and situation *anemia -close to his baseline *GERD - PPI *BPH - prazosin *plan: LTAC's to evaluate him. Subjective: Roger has no specific complaints Objective: Vital Signs Temp Pulse Resp BP Pulse Ox 37.1 C 90 16 139/80 H 96 10/12/18 07:55 10/12/18 08:30 10/12/18 07:55 10/12/18 08:29 10/12/18 07:55 Laboratory Results 10/11/18 05:25 10/09/18 13:20 10/11/18 10/12/18 10/13/18 05:59 05:59 05:59 Intake Total 950 Output Total 835 Balance 115 - Physical Exam Constitutional: chronically ill appearing Eyes: PERRL Ears, Nose, Mouth, Throat: hearing normal Cardiovascular: systolic murmur (soft), irregularly irregular Respiratory: no respiratory distress, reduced air movement Gastrointestinal: normoactive bowel sounds Skin: warm, No normal color (pale) Psychiatric: interacting appropriately, not anxious, not encephalopathic ICD10 Worksheet Patient Problems: Problems Problem Status Onset Cellulitis Acute Decubitus ulcer Acute Ulcer of leg, chronic, right Acute
[2018-10-12] MEDS ORDERED: HYDROmorphONE/DILAUDID 1 MG/ML INJ IVP ONE (11:00)
--- NOTE | 2018-10-12 11:28 | ASMTCMCOM ---
CM Note CM Note Notes: Pt admitted to hospital for LLE cellulitis, he failed out pt abx treatment. He had a debridement and a wound vac placed but that was unsuccessful. Pt is cared for by his , Magalie who is the [employer]. Plan if for pt to go to LTAC, referral [facility] Plan: LTAC Date Signed: 10/12/2018 11:27 AM Electronically Signed By:Gretel Escoto RN
--- NOTE | 2018-10-12 12:38 | PCMIDPN ---
Assessment/Plan: Assessment: 73-year-old man with chronic left lower extremity wound complicated by Enterococcus faecalis infection now status post debridement. Overall wound edges look good will stop antimicrobial therapy today as he has effectively had extended postoperative prophylactic course. Continue to monitor off antibiotics and ensure wound healing occurs as expected. 1. Left lower extremity chronic wound, status post operative debridement 10/10 2. Left lower extremity chronic wound infection with Enterococcus faecalis, resolved 3. Diabetes mellitus, type 2 4. History of mitral valve endocarditis status post mitral valve repair (1993) 5. History of RLE wounds requiring skin grafting and antibiotics (2016) Plan: 1. Stop linezolid 2. Monitor off antimicrobial therapy Castillo Guo MD Infectious Diseases 10/12/18 12:40 Subjective: Remains afebrile. Overall pain control is better since admission. No diarrhea , has not had a bowel movement since surgery. Overall feels much more comfortable. No new concerns today. Objective: Vital Signs Temp Pulse Resp BP Pulse Ox 37.1 C 82 16 102/56 L 98 10/12/18 11:28 10/12/18 11:28 10/12/18 11:28 10/12/18 11:28 10/12/18 11:28 Laboratory Results 10/11/18 05:25 10/09/18 13:20 10/11/18 10/12/18 10/13/18 05:59 05:59 05:59 Intake Total 950 Output Total 835 Balance 115 ESR 43 MM/HR (0-20) H 10/09/18 13:20 Ongoing monitoring for antimicrobial toxicity with: CBC, BMP, interval historical information, and interval physical exam. Discussed treatment/diagnostic testing and testing results with admitting provider(s). Personally reviewed interval laboratory results. - Physical Exam General Appearance: apparent distress, non-toxic EENT: No scleral icterus Respiratory: No respiratory distress, No accessory muscle use, No crackles, No wheezing Neck: full range of motion, supple Cardiac/Chest: No bradycardia, No tachycardia, No diastolic murmur, No systolic murmur Abdomen: other (Hypoactive bowel sounds, nondistended, soft no tenderness to palpation) Skin: other (Left lower extremity dressing in place with small amount of blood present, examined the edges of the surgical debridement site with minimal surrounding erythema, no induration, no fluctuance areas) Neuro/Psych: alert, normal mood/affect, No confused ICD10 Worksheet Patient Problems: Problems Problem Status Onset Cellulitis Acute Decubitus ulcer Acute Ulcer of leg, chronic, right Acute
--- NOTE | 2018-10-12 13:07 | SOAPPROG ---
SOAP Progress Note Assessment/Plan: Assessment: 73yo M c LLE cellulitis, wound - VSS - pain controlled - had some bleeding issues with the site yesterday, VAC removed and pressure dressing placed - VAC replced today: tissue bed has good granulation, anterior LLE has some mottling? unclear why. Black sponge replaced to suction at 125mm Hg, this was wrapped with MARLYN and Spandigrip, to hopefully prevent him removing - LTAC placement in the works, likely Tuesday if does well overnight Plan: 10/12/18 13:06 Subjective: no complaints Objective: Vital Signs Temp Pulse Resp BP Pulse Ox 37.1 C 82 16 102/56 L 98 10/12/18 11:28 10/12/18 11:28 10/12/18 11:28 10/12/18 11:28 10/12/18 11:28 Laboratory Results 10/11/18 05:25 10/09/18 13:20 10/11/18 10/12/18 10/13/18 05:59 05:59 05:59 Intake Total 950 Output Total 835 Balance 115 ICD10 Worksheet Patient Problems: Problems Problem Status Onset Cellulitis Acute Decubitus ulcer Acute Ulcer of leg, chronic, right Acute
[2018-10-12] MEDS: ATORVASTATIN CALCIUM 40 MG TAB PO SCH (18:01)
[2018-10-12] MEDS: RIVAROXABAN 20 MG TAB PO SCH (21:03)
[2018-10-13] MEDS: HYDROmorphONE/DILAUDID 1 MG/ML INJ IVP PRN ×2 (02:21→10:21)
[2018-10-13] MEDS ORDERED: HYDROmorphONE/DILAUDID 1 MG/ML INJ IVP ONE (03:58)
[2018-10-13] MEDS: ACETAMINOPHEN 500 MG TAB PO SCH ×3 (06:05→22:10)
[2018-10-13] MEDS: LEVOTHYROXINE 100 MCG TAB PO SCH (06:06)
[2018-10-13] MEDS ORDERED: oxyCODONE IR 5 MG TAB PO ONE (08:20)
--- NOTE | 2018-10-13 08:24 | SOAPPROG ---
SOAP Progress Note Assessment/Plan: Assessment: 73yo M c LLE cellulitis, wound - VSS - pain controlled - had a better night, had a sitter all night - VAC holding suction, minimal drainage in canister. - LTAC tomorrow Plan: 10/12/18 13:06 10/13/18 08:23 Subjective: no complaints Objective: Vital Signs Temp Pulse Resp BP Pulse Ox 36.8 C 70 16 132/65 H 97 10/13/18 03:38 10/13/18 03:38 10/13/18 03:38 10/13/18 03:38 10/13/18 03:38 Laboratory Results 10/11/18 05:25 10/09/18 13:20 ICD10 Worksheet Patient Problems: Problems Problem Status Onset Cellulitis Acute Decubitus ulcer Acute Ulcer of leg, chronic, right Acute
[2018-10-13] MEDS: CYANO/VITAMIN B12 1000 MCG TAB PO SCH (09:04)
[2018-10-13] MEDS: INSULIN LISPRO 100 UNIT/ML SC SCH ×3 (09:04→19:10)
[2018-10-13] MEDS: CHOLECALCIFEROL VIT D3 1,000 UNITS TAB PO SCH (09:04)
[2018-10-13] MEDS: FERROUS SULFATE 325 MG TAB PO SCH (09:04)
[2018-10-13] MEDS: PRAZOSIN HCL 5 MG CAP PO SCH ×2 (09:05→18:20)
[2018-10-13] MEDS: IRBESARTAN 150 MG TAB PO SCH (09:05)
[2018-10-13] MEDS: PANTOPRAZOLE SODIUM 40 MG TAB PO SCH (09:06)
[2018-10-13] MEDS: FUROSEMIDE 20 MG TAB PO SCH (09:06)
[2018-10-13] MEDS: DILTIAZEM XR 240 MG CAP PO SCH ×2 (09:06→18:19)
[2018-10-13] MEDS: oxyCODONE IR 5 MG TAB PO SCH ×3 (09:06→22:12)
[2018-10-13] MEDS: ASPIRIN 81 MG CHEWABLE TAB PO SCH (09:06)
[2018-10-13] MEDS: CARVEDILOL 25 MG TAB PO SCH ×2 (09:06→18:20)
--- NOTE | 2018-10-13 11:25 | PCMIDPN ---
Assessment/Plan: Assessment: 73-year-old man with chronic left lower extremity wound complicated by Enterococcus faecalis infection now status post debridement. Wound vac in place with no signs or symptoms of ongoing, active infection. 1. Left lower extremity chronic wound, status post operative debridement 10/10 2. Left lower extremity chronic wound infection with Enterococcus faecalis, resolved 3. Diabetes mellitus, type 2 4. History of mitral valve endocarditis status post mitral valve repair (1993) 5. History of RLE wounds requiring skin grafting and antibiotics (2016) Plan: 1. Monitor off antimicrobial therapy 2. Follow clinically and contact ID if new concerns arise Castillo Guo MD Infectious Diseases 10/13/18 11:22 Subjective: No fever or chills in the past 24-hours. Tolerating oral diet with solids and liquids. No diarrhea, nausea, or other GI symptoms. No rash. Appetite improving. Improved since admission but not back to baseline health. Wound vac in place. Objective: Vital Signs Temp Pulse Resp BP Pulse Ox 37.0 C 82 20 155/60 H 91 L 10/13/18 08:00 10/13/18 09:06 10/13/18 08:00 10/13/18 09:05 10/13/18 08:00 Laboratory Results 10/11/18 05:25 10/09/18 13:20 ESR 43 MM/HR (0-20) H 10/09/18 13:20 Discussed treatment/diagnostic testing and testing results with admitting provider(s). Personally reviewed interval laboratory results. - Physical Exam General Appearance: no apparent distress, non-toxic EENT: No scleral icterus Respiratory: No respiratory distress, No accessory muscle use Neck: full range of motion, supple Extremities: No erythema Skin: other (LLE dressing surrounding wound vac not taken down today) Neuro/Psych: alert, normal mood/affect ICD10 Worksheet Patient Problems: Problems Problem Status Onset Cellulitis Acute Decubitus ulcer Acute Ulcer of leg, chronic, right Acute
--- NOTE | 2018-10-13 12:35 | ASMTCMCOM ---
CM Note CM Note Notes: Met with pt's (Magalie) in his room. She is leaning toward [facility] but wants to make sure they won't remove his wound vac, as in the past whenever it's removed and gone to wet-to-dry dressing the wounds get worse. ART spoke to Ryley at [facility]. He is having pt's text him pictures of the wounds and he will show them to doctors at his facility. They will make a decision as to whether or not they can take him and keep the wound vac in place. As pt requires a sitter overnight due to agitation (which increases when pain is not controlled), pt's has agreed to be the sitter if he goes to [facility]. CM will continue to follow. ART D/C plan: to LTAC, facility to be determined. Date Signed: 10/13/2018 12:34 PM Electronically Signed By:Mariel Alfaro
[2018-10-13] MEDS: GABAPENTIN 100 MG CAP PO SCH ×2 (15:36→22:12)
--- NOTE | 2018-10-13 15:50 | HOSPPROG ---
Hospitalist Progress Note Assessment/Plan: 73 yo male with multiple medical problems directly admitted to the hospital from wound care clinic due to worsening infection in his LLE wound. *Severe sepsis 2/2 LLE cellulitis in setting of chronic wound -resolved -was treated with Zyvox (no longer on antibiotics) *LLE cellulitis / wound - S/P operative debridement POD #3 - wound vac replaced # chronic pain due to the above -baseline is on chronic opiates -trial of gabapentin and low dose oxy IR for breakthrough pain -dc iv narcotics *Chronic A fib - rate controlled on Coreg and Dilt -cont Xarelto for CVA prevention (he stroked last time Xarelto was held) *DM type 2 - a1c 6.8%, bg was low yest 56, better today -stopped glipizide, use SSI as needed -also holding metformin, will resume at dc *H/O CVA - cont ASA, Xarelto, statin *H/O DE s/p CABG 1999 and prior coronary stents - stable, chest pain free -cont ASA, BB, statin *Hypertension - well controlled *Hypothyroidism - cont levothyroxine * delirium, Agitation -doing overall well w low dose Haldol (had an episode of long QT) -avoid benzo's due to sedation -in addition, his oxy was decreased to 5 mg TID (had been on 7.5 mg qid) *anemia -close to his baseline *GERD - PPI *BPH - prazosin *plan: LTAC tomorrow Subjective: Roger is very sleepy during my interview. Objective: Vital Signs Temp Pulse Resp BP Pulse Ox 36.8 C 72 17 120/55 L 98 10/13/18 15:27 10/13/18 15:27 10/13/18 15:27 10/13/18 15:27 10/13/18 15:27 Laboratory Results 10/11/18 05:25 10/09/18 13:20 - Physical Exam Constitutional: appears nourished, chronically ill appearing, obese Eyes: PERRL Ears, Nose, Mouth, Throat: hearing normal Cardiovascular: irregularly irregular Respiratory: no respiratory distress, reduced air movement Gastrointestinal: other (large, round, soft) Skin: warm, No normal color (pale) Neurologic: AAOx3 (very sedate, drowsy) ICD10 Worksheet Patient Problems: Problems Problem Status Onset Cellulitis Acute Decubitus ulcer Acute Ulcer of leg, chronic, right Acute
--- NOTE | 2018-10-13 16:22 | ASMTCMCOM ---
CM Note CM Note Notes: CM met with pt's Magalie today and spoke to Ryley Sheridan at [facility] as well as Dr. Garza to consult about pt's discharge plans. Pt will D/C tomorrow (10/14) to [facility]. They have a wound vac available for him there. Pt's will be overnight sitter for pt when he is at the facility. Pt's plans to drive him to facility herself; per Ryley at facility, this is okay. CM will send D/C documents to facility when D/C orders are in tomorrow. Date Signed: 10/13/2018 04:21 PM Electronically Signed By:Mariel Alfaro
[2018-10-13] MEDS: ATORVASTATIN CALCIUM 40 MG TAB PO SCH (18:20)
[2018-10-13] MEDS: oxyCODONE IR 5 MG TAB PO PRN (18:20)
[2018-10-13] MEDS: RIVAROXABAN 20 MG TAB PO SCH (22:12)
[2018-10-14] MEDS: ACETAMINOPHEN 500 MG TAB PO SCH ×3 (06:00→21:13)
[2018-10-14] MEDS: LEVOTHYROXINE 100 MCG TAB PO SCH (06:00)
--- NOTE | 2018-10-14 08:54 | SOAPPROG ---
SOAP Progress Note Assessment/Plan: Assessment: VITAL SIGNS STABLE/AFEBRILE/COMFORTABLE WOUND VAC IN PLACE Plan: TO LTAC TODAY 10/14/18 08:53 Objective: Vital Signs Temp Pulse Resp BP Pulse Ox 37.3 C 76 16 149/57 H 98 10/14/18 07:59 10/14/18 07:59 10/14/18 07:59 10/14/18 07:59 10/14/18 07:59 Laboratory Results 10/11/18 05:25 10/14/18 04:41 ICD10 Worksheet Patient Problems: Problems Problem Status Onset Cellulitis Acute Decubitus ulcer Acute Ulcer of leg, chronic, right Acute
[2018-10-14] MEDS: INSULIN LISPRO 100 UNIT/ML SC SCH ×3 (09:46→18:11)
[2018-10-14] MEDS: PRAZOSIN HCL 5 MG CAP PO SCH ×2 (09:52→18:11)
[2018-10-14] MEDS: oxyCODONE IR 5 MG TAB PO SCH ×3 (09:52→21:14)
[2018-10-14] MEDS: DILTIAZEM XR 240 MG CAP PO SCH ×2 (09:52→18:11)
[2018-10-14] MEDS: CHOLECALCIFEROL VIT D3 1,000 UNITS TAB PO SCH (09:53)
[2018-10-14] MEDS: IRBESARTAN 150 MG TAB PO SCH (09:54)
[2018-10-14] MEDS: PANTOPRAZOLE SODIUM 40 MG TAB PO SCH (09:54)
[2018-10-14] MEDS: GABAPENTIN 100 MG CAP PO SCH ×3 (09:54→21:14)
[2018-10-14] MEDS: FERROUS SULFATE 325 MG TAB PO SCH (09:54)
[2018-10-14] MEDS: FUROSEMIDE 20 MG TAB PO SCH (09:54)
[2018-10-14] MEDS: CARVEDILOL 25 MG TAB PO SCH ×2 (09:54→18:11)
[2018-10-14] MEDS: CYANO/VITAMIN B12 1000 MCG TAB PO SCH (09:54)
[2018-10-14] MEDS: ASPIRIN 81 MG CHEWABLE TAB PO SCH (09:54)
--- NOTE | 2018-10-14 09:58 | PDIAF ---
- Diagnosis Diagnosis: wound Code Status: Full Code - Medication Management Discharge Medications: electronically signed and located in the Home Medication List. - Orders Services needed: Physical Therapy, Occupational Therapy Diet Recommendation: no restrictions on diet Additional Instructions: Wound Care: Wound vac to remain in place at -125mmHg continuous suction. White foam to cover area of tendon. Black block or simplace foam otherwise. Vac changes to be completed every Tue/Tue/Tue. Next vac change Tuesday, 10/16. - Follow Up Care Current Providers and Referrals: WHITNEY CROUCH MD [Other]
--- NOTE | 2018-10-14 10:56 | ASMTLACE ---
LACE Length of stay for Answers: 4-6 days current admission Acuity / Level of Answers: Yes Care: Did the patient have an inpatient admission? Comorbidities - select Answers: Coronary Artery Disease all that apply Diabetes (uncontrolled or controlled) Previous myocardial infarction Other Notes: HTN; Hypothyroid # of Emergency department Answers: 1-2 visits in the last 6 months Score: 13 Date Signed: 10/14/2018 10:55 AM Electronically Signed By:Mraiel Alfaro
--- NOTE | 2018-10-14 11:04 | ASMTDCNOTE ---
Case Management Discharge Discharge Order Complete? Answers: Yes Patient to Obtain Answers: Other Notes: via [facility] Transportation Arranged Answers: KAYLIE Carlson Transport will Pick (Date 10/14/2018 12:00 PM & Time) Case Management Transport Answers: Yes Form Complete Agency/Facility Transfer Answers: Yes Report Printed & Faxed to Receiving Agency Family Notified Answers: Yes Discharge Comments Notes: Pt being picked up at noon by KAYLIE carlson. [facility] Spoke with Ryley there; he says facility has a wound vac pt will use when there. Magalie is with pt and will be his overnight sitter at the facility. No further needs identified at this time. Date Signed: 10/14/2018 11:03 AM Electronically Signed By:Mariel Alfaro
--- NOTE | 2018-10-14 11:56 | ASDISCHSUM ---
Discharge Information Plan Status:LTAC Medically Cleared to Leave:10/18/2018 Discharge Date:10/18/2018 02:11 PM CM D/C Disposition: ADT D/C Disposition:[facility] Projected Discharge Date:10/18/2018 11:00 AM Transportation at D/C: Discharge Delay Reason: Follow-Up Date:10/18/2018 11:00 AM Discharge Slot: Final Diagnosis: Placement Information [facility] Referral ID:[id number] Provider Name:[facility] Address 1:[address] Address 2: City:[place] Selection Factors: State:[place] [facility] Type[facility] Referral ID:[id number] Provider Name:[facility] Address 1:[address] Address 2: City:[place] Selection Factors: State:[place] Patient Contact Information Contact Name:MERCEDES Relationship: Address:[address] City:[place] Alternate Phone: State/Zip Code:[place] [address] Email: Financial Information Financial Class:[employer] Primary Plan Desc:[facility] Primary Plan Number:[id number] Secondary Plan Desc:MEDICARE OUTPATIENT Secondary Plan Number:[id number] Assessment Information LACE LACE Length of stay for Answers: 4-6 days current admission Acuity / Level of Answers: Yes Care: Did the patient have an inpatient admission? Comorbidities - select Answers: Coronary Artery Disease all that apply Diabetes (uncontrolled or controlled) Previous myocardial infarction Other Notes: HTN; Hypothyroid # of Emergency department Answers: 1-2 visits in the last 6 months Score: 13 Date Signed: 10/14/2018 10:55 AM Electronically Signed By:Mariel Alfaro [facility] Progress Note CM Note CM Note Notes: Pt admitted to hospital for LLE cellulitis, he failed out pt abx treatment. He had a debridement and a wound vac placed but that was unsuccessful. Pt is cared for by his , Magalie who is the [employer]. Plan if for pt to go to [facility], referral sent to [facility], and [facility] Plan: [facility] Date Signed: 10/12/2018 11:27 AM Electronically Signed By:Gretel Escoto RN [facility] CM Progress Note CM Note CM Note Notes: Met with pt's (Magalie) in his room. She is leaning toward [facility] but wants to make sure they won't remove his wound vac, as in the past whenever it's removed and gone to wet-to-dry dressing the wounds get worse. CM spoke to Ryley at [facility]. He is having pt's text him pictures of the wounds and he will show them to doctors at his facility. They will make a decision as to whether or not they can take him and keep the wound vac in place. As pt requires a sitter overnight due to agitation (which increases when pain is not controlled), pt's has agreed to be the sitter if he goes to [facility]. CM will continue to follow. CM D/C plan: to [facility], facility to be determined. Date Signed: 10/13/2018 12:34 PM Electronically Signed By:Mariel Alfaro [facility] Progress Note CM Note Note Notes: CM met with pt's Magaile today and spoke to Ryley Sheridan at [facility] as well as Dr. Garza to consult about pt's discharge plans. Pt will D/C tomorrow (10/14) to [facility]. They have a wound vac available for him there. Pt's will be overnight sitter for pt when he is at the facility. Pt's plans to drive him to facility herself; per Ryley at [facility], this is okay. will send D/C documents to facility when D/C orders are in tomorrow. Date Signed: 10/13/2018 04:21 PM Electronically Signed By:Mariel Alfaro Case Management Discharge Plan Note Case Management Discharge Discharge Order Complete? Answers: Yes Patient to Obtain Answers: Other Notes: via [facility] Transportation Arranged Answers: KAYLIE Carlson Transport will Pick (Date 10/14/2018 12:00 PM & Time) Case Management Transport Answers: Yes Form Complete Agency/Facility Transfer Answers: Yes Report Printed & Faxed to Receiving Agency Family Notified Answers: Yes Discharge Comments Notes: Pt being picked up at noon by KAYLIE carlson. D/C documents sent to [facility]. Spoke with Ryley there; he says facility has a wound vac pt will use when there. Magalie is with pt and will be his overnight sitter at the facility. No further needs identified at this time. Date Signed: 10/14/2018 11:03 AM Electronically Signed By:Mariel Alfaro [facility] CM Progress Note CM Note CM Note Notes: PLEASE DISREGARD TODAY'S D/C NOTE. FACILITY REALIZED THEY COULDN'T GET A WOUND VAC FOR HIM UNTIL TUESDAY. CANCELLED TRANSPORT WITH [facility] AND NOTIFIED PT'S MAGALIE. DR. MANN WILL REVERSE D/C ORDERS. Date Signed: 10/14/2018 04:23 PM Electronically Signed By:Mariel Alfaro [facility] CM Progress Note CM Note CM Note Notes: Plan was for patient to go to [facility] today; however, he had a CTA that showed occlusion and will need angiogram/stenting tomorrow. Patient also has a bladder mass. I called the LTAC and explained that the d/c would need to be on hold. Of note - patient's was going to transport him to the facility with the [facility] wound vac intact and then return the wound vac to us (she works here). If d/c plan continues to be [facility] and patient is still suitable for to transport, I imagine that this plan will remain the same. However, his d/c needs are now TBD. Case Management will follow. Date Signed: 10/16/2018 04:12 PM Electronically Signed By:Zuri Jeffery RN [facility] CM Progress Note CM Note CM Note Notes: Pts case discussed w/ Dr. Domínguez. Pt is being d/c'd today to [facility]. CM spoke to Ryley Sheridan. He has a wound vac for pt. Pts will return the hospital wound vac once the new one is reattached since she is an employee at [facility]. Dr. Domínguez completed doc to doc w/ Dr. Gonzalez. BRIDGER Abrams will call to give report. DC orders sent. Pts will transport pt. CM available for changes. Plan: [facility] Date Signed: 10/18/2018 02:12 PM Electronically Signed By:CELSO Vargas Intervention Information Intervention Type:*IM-Signed Date of Service:10/16/2018 10:14 AM Patient Type:Inpatient Staff Member:Maggie Hui Hours: Discipline: Severity: Comment:
--- NOTE | 2018-10-14 16:24 | ASMTCMCOM ---
CM Note CM Note Notes: PLEASE DISREGARD TODAY'S D/C NOTE. FACILITY REALIZED THEY COULDN'T GET A WOUND VAC FOR HIM UNTIL TUESDAY. CM CANCELLED TRANSPORT WITH [facility] AND NOTIFIED PT'S JULIANO. DR. MANN WILL REVERSE D/C ORDERS. Date Signed: 10/14/2018 04:23 PM Electronically Signed By:Mariel Alfaro
--- NOTE | 2018-10-14 16:27 | HOSPPROG ---
Hospitalist Progress Note Assessment/Plan: * Severe sepsis due to cellulitis LLE -s/p Zyvox * LLE wound s/p I&D -wound vac -LTAC will not have wound vac available until Tuesday - dispo cancelled * Afib -coreg, dilt -Xarelto * DM II -DC glipizide * CAD/CABG/stents -ASA, statin * Metabolic encephalopathy -improved * Prolonged QT -watch meds closely Subjective: pain controlled, confusion better Objective: Vital Signs Temp Pulse Resp BP Pulse Ox 37.1 C 60 16 129/60 H 94 10/14/18 15:47 10/14/18 15:47 10/14/18 15:47 10/14/18 15:47 10/14/18 15:47 Laboratory Results 10/11/18 05:25 10/14/18 04:41 case d/w Dr. rueda old chart reviewed - recent DC by Dr Allen for wound EKG viewed, my personal interpretation is - prolonged QT - Time Spent With Patient Time Spent with Patient: greater than 35 minutes Time Spent with Patient: Greater than 35 minutes spent on this patients care, greater than 50% of time spent counseling, educating, and coordinating care regarding the above mentioned plan. - Physical Exam Constitutional: no apparent distress, appears nourished, not in pain Cardiovascular: regular rate and rhythym, no murmur, rub, or gallop Respiratory: no respiratory distress, no rales or rhonchi, clear to auscultation Gastrointestinal: normoactive bowel sounds, soft, non-tender abdomen, no palpable masses Skin: no rashes or abrasions, no fluctuance, no induration Neurologic: AAOx3, sensation intact bilaterally Psychiatric: interacting appropriately, not anxious, not encephalopathic, thought process linear ICD10 Worksheet Patient Problems: Problems Problem Status Onset Ulcer of leg, chronic, right Acute Decubitus ulcer Acute Cellulitis Acute
[2018-10-14] MEDS: ATORVASTATIN CALCIUM 40 MG TAB PO SCH (18:10)
[2018-10-14] MEDS: RIVAROXABAN 20 MG TAB PO SCH (21:14)
--- NOTE | 2018-10-15 02:53 | GDS ---
[f rep st] MTDD
[2018-10-15] MEDS: ACETAMINOPHEN 500 MG TAB PO SCH ×3 (03:25→21:39)
[2018-10-15] MEDS: LEVOTHYROXINE 100 MCG TAB PO SCH (03:25)
[2018-10-15 04:52] LABS: PLATELET COUNT 262 10^3/uL (150-400)
[2018-10-15] MEDS: INSULIN LISPRO 100 UNIT/ML SC SCH ×3 (08:52→18:11)
[2018-10-15] MEDS: CARVEDILOL 25 MG TAB PO SCH ×2 (10:01→18:12)
[2018-10-15] MEDS: PRAZOSIN HCL 5 MG CAP PO SCH ×2 (10:02→18:12)
[2018-10-15] MEDS: DILTIAZEM XR 240 MG CAP PO SCH ×2 (10:02→18:12)
[2018-10-15] MEDS: oxyCODONE IR 5 MG TAB PO SCH ×3 (10:02→21:39)
[2018-10-15] MEDS: CHOLECALCIFEROL VIT D3 1,000 UNITS TAB PO SCH (10:03)
[2018-10-15] MEDS: IRBESARTAN 150 MG TAB PO SCH (10:03)
[2018-10-15] MEDS: CYANO/VITAMIN B12 1000 MCG TAB PO SCH (10:03)
[2018-10-15] MEDS: FERROUS SULFATE 325 MG TAB PO SCH (10:03)
[2018-10-15] MEDS: FUROSEMIDE 20 MG TAB PO SCH (10:03)
[2018-10-15] MEDS: ASPIRIN 81 MG CHEWABLE TAB PO SCH (10:03)
[2018-10-15] MEDS: PANTOPRAZOLE SODIUM 40 MG TAB PO SCH (10:03)
[2018-10-15] MEDS: GABAPENTIN 100 MG CAP PO SCH ×3 (10:03→21:39)
--- NOTE | 2018-10-15 13:32 | SOAPPROG ---
SOAP Progress Note Assessment/Plan: Assessment: VITAL SIGNS STABLE/AFEBRILE/COMFORTABLE WOUND VAC IN PLACE Plan: TO LTAC TODAY 10/14/18 08:53 10/15/18 13:32 DRESSING CHANGE TODAY SOME BLEEDING AROUND VAC WILL CHECK ART STUDIES Objective: Vital Signs Temp Pulse Resp BP Pulse Ox 37.2 C 72 16 148/65 H 97 10/15/18 08:00 10/15/18 08:00 10/15/18 08:00 10/15/18 08:00 10/15/18 08:00 Microbiology 10/09/18 21:10 Blood Culture - Final Blood 10/09/18 21:15 Blood Culture - Final Blood Laboratory Results 10/15/18 04:32 10/14/18 04:41 10/14/18 10/15/18 10/16/18 05:59 05:59 05:59 Output Total 300 Balance -300 ICD10 Worksheet Patient Problems: Problems Problem Status Onset Cellulitis Acute Decubitus ulcer Acute Ulcer of leg, chronic, right Acute
--- NOTE | 2018-10-15 13:36 | HOSPPROG ---
Hospitalist Progress Note Assessment/Plan: * Severe sepsis due to cellulitis LLE -s/p Zyvox * LLE wound s/p I&D -wound vac * Afib -coreg, dilt -Xarelto * DM II -DC glipizide * CAD/CABG/stents -ASA, statin * Metabolic encephalopathy -improved * Prolonged QT -watch meds closely Unable to discharge to LTAC until tomorrow as they do not currently have wound vac equipment. Subjective: No new changes Objective: Vital Signs Temp Pulse Resp BP Pulse Ox 37.2 C 72 16 148/65 H 97 10/15/18 08:00 10/15/18 08:00 10/15/18 08:00 10/15/18 08:00 10/15/18 08:00 Microbiology 10/09/18 21:10 Blood Culture - Final Blood 10/09/18 21:15 Blood Culture - Final Blood Laboratory Results 10/15/18 04:32 10/14/18 04:41 10/14/18 10/15/18 10/16/18 05:59 05:59 05:59 Output Total 300 Balance -300 - Physical Exam Constitutional: no apparent distress, appears nourished, not in pain Cardiovascular: regular rate and rhythym, no murmur, rub, or gallop Respiratory: no respiratory distress, no rales or rhonchi, clear to auscultation Gastrointestinal: normoactive bowel sounds, soft, non-tender abdomen, no palpable masses Skin: no rashes or abrasions, no fluctuance, no induration Neurologic: AAOx3, sensation intact bilaterally Psychiatric: interacting appropriately, not anxious, not encephalopathic, thought process linear ICD10 Worksheet Patient Problems: Problems Problem Status Onset Cellulitis Acute Decubitus ulcer Acute Ulcer of leg, chronic, right Acute
[2018-10-15] MEDS: oxyCODONE IR 5 MG TAB PO PRN (13:37)
--- NOTE | 2018-10-15 13:50 | SOAPPROG ---
SOAP Progress Note Assessment/Plan: Assessment: VITAL SIGNS STABLE/AFEBRILE/COMFORTABLE WOUND VAC IN PLACE Plan: TO LTAC TODAY 10/14/18 08:53 10/15/18 13:32 DRESSING CHANGE TODAY SOME BLEEDING AROUND VAC WILL CHECK ART STUDIES 10/15/18 13:48 WOUND LOOKS GREAT WITH EXCELLENT GRANULATION WILL CHECK ART STUDIES AND CONSIDER STSG SOON IF BLOOD SUPPLY ADEQUATE, NO PALPABLE PEDAL PULSES Objective: Vital Signs Temp Pulse Resp BP Pulse Ox 37.2 C 72 16 148/65 H 97 10/15/18 08:00 10/15/18 08:00 10/15/18 08:00 10/15/18 08:00 10/15/18 08:00 Microbiology 10/09/18 21:10 Blood Culture - Final Blood 10/09/18 21:15 Blood Culture - Final Blood Laboratory Results 10/15/18 04:32 10/14/18 04:41 10/14/18 10/15/18 10/16/18 05:59 05:59 05:59 Output Total 300 Balance -300 ICD10 Worksheet Patient Problems: Problems Problem Status Onset Cellulitis Acute Decubitus ulcer Acute Ulcer of leg, chronic, right Acute
[2018-10-15] MEDS: ATORVASTATIN CALCIUM 40 MG TAB PO SCH (18:12)
[2018-10-15] MEDS: RIVAROXABAN 20 MG TAB PO SCH (21:39)
[2018-10-16] MEDS: oxyCODONE IR 5 MG TAB PO PRN ×3 (03:06→22:22)
[2018-10-16] MEDS: GABAPENTIN 100 MG CAP PO SCH (03:07)
[2018-10-16] MEDS: LEVOTHYROXINE 100 MCG TAB PO SCH (03:07)
[2018-10-16] MEDS: INSULIN LISPRO 100 UNIT/ML SC SCH ×3 (08:51→18:09)
[2018-10-16] MEDS: oxyCODONE IR 5 MG TAB PO SCH ×3 (08:52→20:27)
[2018-10-16] MEDS: ACETAMINOPHEN 500 MG TAB PO SCH ×3 (08:53→22:22)
[2018-10-16] MEDS: PANTOPRAZOLE SODIUM 40 MG TAB PO SCH (08:54)
[2018-10-16] MEDS: CARVEDILOL 25 MG TAB PO SCH ×2 (08:54→18:09)
[2018-10-16] MEDS: DILTIAZEM XR 240 MG CAP PO SCH ×2 (08:55→18:09)
[2018-10-16] MEDS: FERROUS SULFATE 325 MG TAB PO SCH (08:55)
[2018-10-16] MEDS: ASPIRIN 81 MG CHEWABLE TAB PO SCH (08:55)
[2018-10-16] MEDS: PRAZOSIN HCL 5 MG CAP PO SCH ×2 (08:55→18:09)
[2018-10-16] MEDS: CHOLECALCIFEROL VIT D3 1,000 UNITS TAB PO SCH (08:55)
[2018-10-16] MEDS: CYANO/VITAMIN B12 1000 MCG TAB PO SCH (08:55)
[2018-10-16] MEDS: IRBESARTAN 150 MG TAB PO SCH (08:55)
[2018-10-16] MEDS: FUROSEMIDE 20 MG TAB PO SCH (08:56)
[2018-10-16] MEDS ORDERED: GABAPENTIN 100 MG CAP PO ONE (09:00)
--- NOTE | 2018-10-16 09:44 | SOAPPROG ---
SOAP Progress Note Assessment/Plan: Assessment: 73yo M c LLE cellulitis, wound - transfer delayed 2/2 no VAC at LTAC - VAC removed yesterday 2/2 bleeding. Will replace today - also getting arterial studies before dc which will be helpful in determining any need for revascularization Plan: 10/12/18 13:06 10/13/18 08:23 10/16/18 09:40 Subjective: no complaints Objective: Vital Signs Temp Pulse Resp BP Pulse Ox 37.0 C 97 16 164/124 H 90 L 10/16/18 08:13 10/16/18 08:13 10/16/18 08:13 10/16/18 08:13 10/16/18 08:13 Microbiology 10/09/18 21:10 Blood Culture - Final Blood 10/09/18 21:15 Blood Culture - Final Blood Laboratory Results 10/15/18 04:32 10/14/18 04:41 10/15/18 10/16/18 10/17/18 05:59 05:59 05:59 Intake Total 300 Output Total 700 Balance -400 ICD10 Worksheet Patient Problems: Problems Problem Status Onset Cellulitis Acute Decubitus ulcer Acute Ulcer of leg, chronic, right Acute
[2018-10-16] MEDS ORDERED: IOPAMIDOL (ISOVUE-370) 150 ML BTL IV ONE (13:30)
--- NOTE | 2018-10-16 14:11 | WOCRNPDOC ---
PINO Advanced Assessment Note - Skin Integrity Problem, Advanced Assess Left Lower Leg Venous Stasis Ulcer Dressing Type: ABD Pad, Adaptic Touch, Gauze, Kerlix Dressing Description: Intact, Shadowed Exudate Amount: Moderate Exudate Color: Yellow, Red Exudate Characteristic(s): Serosanguinous Integumentary Issue Intervention: Dressing Changed Bushra Wound Tissue: Ecchymotic (anteriorly, crusty purple 5x3.5 cm) Wound Bed Color: Brown, Red, Yellow Wound Bed Constitution: Granulation Tissue (80%), Red/[place] - Non Granular Tissue (10%), Unstable Eschar (10%) Wound Edges: Attached Site Measurement - Head-to-Toe Length X Width X Depth (cm): 7.5x8.5x0.4 Skin Integrity Problem Comment: Pt premedicated for wound vac placement. Wound cleaned with ns and gauze. Skin prep and draped periwound including darker area on anterior LE. One piece small Simplace black foam placed over wound bed. Suction at -125 mm Hg with no leaks noted. Patient tolerated, present. Meri GARCIA in room to assist with leg placement. Dr Garza notified of findings.
--- NOTE | 2018-10-16 16:13 | ASMTCMCOM ---
CM Note CM Note Notes: Plan was for patient to go to [facility] today; however, he had a CTA that showed occlusion and will need angiogram/stenting tomorrow. Patient also has a bladder mass. I called the LTAC and explained that the d/c would need to be on hold. Of note - patient's was going to transport him to the facility with the [facility] wound vac intact and then return the wound vac to us (she works here). If d/c plan continues to be [facility] and patient is still suitable for to transport, I imagine that this plan will remain the same. However, his d/c needs are now TBD. Case Management will follow. Date Signed: 10/16/2018 04:12 PM Electronically Signed By:Zuri Jeffery RN
[2018-10-16] MEDS ORDERED: HEPARIN 10,000 UNIT/10 ML MDV (1,000 UNIT/ML) IVP PRN (16:17)
--- NOTE | 2018-10-16 16:39 | HOSPPROG ---
Hospitalist Progress Note Assessment/Plan: * Severe sepsis due to cellulitis LLE -s/p Zyvox * LLE wound s/p I&D -wound vac -good pain control with gabapentin - will increase dose * PVD -CTA shows stenosis that would benefit from intervention - d/w Dr. Clark -IR to do angio with possible stenting in am * Bladder mass - per Dr. Clark looks like transitional cell bladder cancer -urology consulted - d/w Dr. Ortega -cystoscopy with bladder biopsy likely tomorrow as well * h/o CVA - embolic from afib -this occurred while briefly off anticoagulation for procedure -hold Xarelto - will plan for procedures on IV heparin window, as short as possible * Afib -coreg, dilt * DM II -DC glipizide * CAD/CABG/stents -ASA, statin * Metabolic encephalopathy -improved * Prolonged QT -watch meds closely Subjective: Tried AP but too much pain in leg to perform. CTA with runoff ordered, findings as above. No blood in urine. Objective: Vital Signs Temp Pulse Resp BP Pulse Ox 37.0 C 97 16 142/58 H 98 10/16/18 15:26 10/16/18 08:13 10/16/18 15:26 10/16/18 15:26 10/16/18 15:26 Laboratory Results 10/15/18 04:32 10/14/18 04:41 10/15/18 10/16/18 10/17/18 05:59 05:59 05:59 Intake Total 300 Output Total 700 Balance -400 CTA with run off - + PVD with poor flow, bladder mass - Physical Exam Constitutional: no apparent distress, appears nourished, not in pain Cardiovascular: regular rate and rhythym, no murmur, rub, or gallop Respiratory: no respiratory distress, no rales or rhonchi, clear to auscultation Gastrointestinal: normoactive bowel sounds, soft, non-tender abdomen, no palpable masses Skin: no rashes or abrasions, no fluctuance, no induration Neurologic: AAOx3, sensation intact bilaterally Psychiatric: interacting appropriately, not anxious, not encephalopathic, thought process linear ICD10 Worksheet Patient Problems: Problems Problem Status Onset Cellulitis Acute Decubitus ulcer Acute Ulcer of leg, chronic, right Acute
[2018-10-16 17:14] LABS: PLATELET COUNT 268 10^3/uL (150-400)
--- NOTE | 2018-10-16 17:24 | SOAPPROG ---
SOAP Progress Note Assessment/Plan: Assessment: Bladder mass Acute need cysto and consider bx if abnormal on cysto. Will arrange in future Plan: Plan cysto and bladder bx in future, plans for vascular procedure tomorrow so will delay bladder issue til vascular r 10/16/18 17:51 Subjective: no concerns Objective: Vital Signs Temp Pulse Resp BP Pulse Ox 37.0 C 97 16 142/58 H 98 10/16/18 15:26 10/16/18 08:13 10/16/18 15:26 10/16/18 15:26 10/16/18 15:26 Laboratory Results 10/16/18 17:02 10/14/18 04:41 10/15/18 10/16/18 10/17/18 05:59 05:59 05:59 Intake Total 300 Output Total 700 Balance -400 Physical Exam - Physical Exam General Appearance: alert Respiratory: No respiratory distress Cardiac/Chest: regular rate, rhythm Abdomen: soft Back: No CVA tenderness Neuro/Psych: alert, oriented x 3 ICD10 Worksheet Patient Problems: Problems Problem Status Onset Bladder mass Acute Cellulitis Acute Decubitus ulcer Acute Ulcer of leg, chronic, right Acute - ICD10 Problem Qualifiers (1) Bladder mass
[2018-10-16 17:26] LABS: INR 1.41 (0.83-1.16); PROTIME(PATIENT) 16.6 SEC (12.0-15.0)
[2018-10-16] MEDS: ATORVASTATIN CALCIUM 40 MG TAB PO SCH (18:09)
[2018-10-16] MEDS: GABAPENTIN 300 MG CAP PO SCH (20:27)
[2018-10-16] MEDS: HEPARIN/DEXTROSE 500 ML IV SCH (22:23)
[2018-10-17 05:09] LABS: PLATELET COUNT 247 10^3/uL (150-400)
[2018-10-17 05:23] LABS: INR 1.21 (0.83-1.16); PROTIME(PATIENT) 14.8 SEC (12.0-15.0)
[2018-10-17] MEDS: ACETAMINOPHEN 500 MG TAB PO SCH ×3 (07:19→20:57)
[2018-10-17] MEDS: LEVOTHYROXINE 100 MCG TAB PO SCH (07:19)
[2018-10-17] MEDS: INSULIN LISPRO 100 UNIT/ML SC SCH ×3 (09:28→20:55)
[2018-10-17] MEDS: FUROSEMIDE 20 MG TAB PO SCH (09:53)
[2018-10-17] MEDS: GABAPENTIN 300 MG CAP PO SCH ×2 (09:53→20:58)
[2018-10-17] MEDS: FERROUS SULFATE 325 MG TAB PO SCH (09:54)
[2018-10-17] MEDS: oxyCODONE IR 5 MG TAB PO SCH ×3 (09:54→20:58)
[2018-10-17] MEDS: CYANO/VITAMIN B12 1000 MCG TAB PO SCH (09:54)
[2018-10-17] MEDS: PRAZOSIN HCL 5 MG CAP PO SCH ×2 (09:54→18:20)
[2018-10-17] MEDS: PANTOPRAZOLE SODIUM 40 MG TAB PO SCH (09:54)
[2018-10-17] MEDS: DILTIAZEM XR 240 MG CAP PO SCH ×2 (09:54→18:20)
[2018-10-17] MEDS: CARVEDILOL 25 MG TAB PO SCH ×2 (09:54→18:20)
[2018-10-17] MEDS: IRBESARTAN 150 MG TAB PO SCH (09:55)
[2018-10-17] MEDS: CHOLECALCIFEROL VIT D3 1,000 UNITS TAB PO SCH (09:55)
--- NOTE | 2018-10-17 11:57 | HOSPPROG ---
Hospitalist Progress Note Assessment/Plan: 73 yo M with hx of PVD, a fib, CVA presenting with sepsis and cellulitis * Severe sepsis due to cellulitis LLE -resolved -s/p Zyvox * LLE wound s/p I&D -wound vac -good pain control with gabapentin * PVD -CTA showing stenosis and plan for IR angio possible stent today * Bladder mass - per Dr. Clark looks like transitional cell bladder cancer -urology consulted -cystoscopy with bladder biopsy to be performed likely tomorrow * h/o CVA - embolic from afib -this occurred while briefly off anticoagulation for procedure -hold Xarelto - will plan for procedures on IV heparin window, as short as possible * Afib -coreg, dilt * DM II -DC glipizide * CAD/CABG/stents -ASA, statin * Metabolic encephalopathy -improved * Prolonged QT -watch meds closely * IP status, plan is for LTAC when procedures complete Patient new to my care. Old records reviewed and summarized as above. Care plan reviewed with CM. Subjective: no acute overnight events, patient states he is feeling well Objective: Vital Signs Temp Pulse Resp BP Pulse Ox 37.1 C 83 16 143/71 H 98 10/17/18 07:59 10/17/18 07:59 10/17/18 07:59 10/17/18 07:59 10/17/18 07:59 Laboratory Results 10/17/18 04:45 10/17/18 04:45 10/16/18 10/17/18 10/18/18 05:59 05:59 05:59 Intake Total 300 262.3 Output Total 700 Balance -400 262.3 PT 14.8 SEC (12.0-15.0) 10/17/18 04:45 INR 1.21 (0.83-1.16) H 10/17/18 04:45 awake alert anicteric op clear rrr no mrg cta b to ant exam soft nt nd lle wound vac warm dry well perfused oriented appropriate ICD10 Worksheet Patient Problems: Problems Problem Status Onset Ulcer of leg, chronic, right Acute Decubitus ulcer Acute Cellulitis Acute Bladder mass Acute
[2018-10-17] MEDS ORDERED: IOPAMIDOL (ISOVUE-300) 100 ML BTL ONE (12:33)
[2018-10-17] MEDS ORDERED: LIDOCAINE 1% 300 MG/30 ML SDV ONE (12:40)
[2018-10-17] MEDS ORDERED: MIDAZOLAM 2 MG/2 ML VIAL IVP PRN (12:43)
[2018-10-17] MEDS ORDERED: NALOXONE HCL 0.4 MG/ML INJ IVP PRN (12:43)
[2018-10-17] MEDS ORDERED: fentaNYL 100 MCG/2 ML INJ IVP PRN (12:43)
[2018-10-17] MEDS ORDERED: FLUMAZENIL 0.5 MG/5 ML MDV IVP PRN (12:43)
[2018-10-17] MEDS ORDERED: NS 1,000 ML IV SCH (12:45)
--- NOTE | 2018-10-17 13:43 | SOAPPROG ---
SOAP Progress Note Assessment/Plan: Assessment: bladder mass Plan: Will need outpatient cysto. 10/17/18 13:42 Subjective: Patient in OR. Nurse reports not gross hematuria Objective: Vital Signs Temp Pulse Resp BP Pulse Ox 36.8 C 75 20 132/70 H 97 10/17/18 12:56 10/17/18 12:56 10/17/18 12:56 10/17/18 12:56 10/17/18 12:56 Laboratory Results 10/17/18 04:45 10/17/18 04:45 10/16/18 10/17/18 10/18/18 05:59 05:59 05:59 Intake Total 300 262.3 Output Total 700 Balance -400 262.3 PT 14.8 SEC (12.0-15.0) 10/17/18 04:45 INR 1.21 (0.83-1.16) H 10/17/18 04:45 ICD10 Worksheet Patient Problems: Problems Problem Status Onset Bladder mass Acute Cellulitis Acute Decubitus ulcer Acute Ulcer of leg, chronic, right Acute
--- NOTE | 2018-10-17 13:48 | PDHPUP ---
History & Physical Update H&P update statement: This history and physical update is based on an assessment of the patient which was completed after admission or registration (within 24 hours), but prior to the surgery/procedure. Nonhealing LLE wound: plan for arteriogram with possible angioplasty and/or stent placement H&P update: H&P reviewed & patient examined, no change in patient's condition since H&P completed
--- NOTE | 2018-10-17 13:48 | PDPROPOC ---
Sedation Plan of Care Sedation Plan of Care: mental status noted ASA Classification: ASA 3 Planned drugs: fentanyl, midazolam Mallampati Score: Class 3 Mallampati Reference Image: Patient passed 3-3-2 rule?: Yes
--- NOTE | 2018-10-17 14:48 | PDRADPN ---
Radiology Procedure Note Date of Procedure: 10/17/18 Radiologist: Tien Jorge Anesthesia: IV Sedation Pre-op Diagnosis: Nonhealing LLE wound Post-op Diagnosis: Nonhealing LLE wound Indication: Nonhealing LLE wound Finding(s): No high grade stenosis in pelvis or LLE. No indication for intervention. Inf/Abcess present in the surg proc area at time of surgery?: No
[2018-10-17] MEDS: ATORVASTATIN CALCIUM 40 MG TAB PO SCH (18:20)
[2018-10-17] MEDS: HEPARIN/DEXTROSE 500 ML IV SCH (18:21)
[2018-10-18] MEDS: ACETAMINOPHEN 500 MG TAB PO SCH (06:25)
[2018-10-18] MEDS: LEVOTHYROXINE 100 MCG TAB PO SCH (06:25)
[2018-10-18] MEDS: oxyCODONE IR 5 MG TAB PO SCH (09:49)
[2018-10-18] MEDS: CHOLECALCIFEROL VIT D3 1,000 UNITS TAB PO SCH (09:50)
[2018-10-18] MEDS: GABAPENTIN 300 MG CAP PO SCH (09:50)
[2018-10-18] MEDS: IRBESARTAN 150 MG TAB PO SCH (09:50)
[2018-10-18] MEDS: FERROUS SULFATE 325 MG TAB PO SCH (09:50)
[2018-10-18] MEDS: FUROSEMIDE 20 MG TAB PO SCH (09:50)
[2018-10-18] MEDS: DILTIAZEM XR 240 MG CAP PO SCH (09:51)
[2018-10-18] MEDS: PRAZOSIN HCL 5 MG CAP PO SCH (09:51)
[2018-10-18] MEDS: CYANO/VITAMIN B12 1000 MCG TAB PO SCH (09:51)
[2018-10-18] MEDS: PANTOPRAZOLE SODIUM 40 MG TAB PO SCH (09:51)
[2018-10-18] MEDS: INSULIN LISPRO 100 UNIT/ML SC SCH ×2 (09:51→12:24)
[2018-10-18] MEDS: CARVEDILOL 25 MG TAB PO SCH (09:51)
[2018-10-18] MEDS: oxyCODONE IR 5 MG TAB PO PRN (10:54)
[2018-10-18] MEDS: HEPARIN/DEXTROSE 500 ML IV SCH (10:58)
[2018-10-18] MEDS ORDERED: HYDROmorphONE/DILAUDID 1 MG/ML INJ IVP ONE (11:02)
[2018-10-18] MEDS ORDERED: RIVAROXABAN 20 MG TAB PO SCH ×2 (11:15→12:45)
--- NOTE | 2018-10-18 11:57 | WOCRNPDOC ---
WOCRN Advanced Assessment Note - Skin Integrity Problem, Advanced Assess Left Lower Leg Venous Stasis Ulcer Dressing Type: Wound Vac Dressing Description: Intact Integumentary Issue Intervention: Dressing Changed [place] Wound Tissue: Ecchymotic [place] Wound Swelling: None Wound Bed Constitution: Granulation Tissue (50%), Mixed Loose & Adhered Slough/ Eschar (50%) Wound Edges: Epithelizing, Attached Site Measurement - Head-to-Toe Length X Width X Depth (cm): 14x8.5x0.4 Skin Integrity Problem Comment: This wound has expanded to include the anterior aspect of the leg around the gaiter, previously ecchymotic crusty tissue on tuesday (two days ago) is now slough. There was a strip of this tissue that was not covered by drape which is still dark hard tissue, appearing to be necrotic/ eschar. Patient premedicated with ordered dose of PO pain meds. Also medicaed part way thru with breakthrough dose of po Oxy due to discomfort. Wound vac dressing removed using saline instilled foam. Periwound skin prepped and draped. One piece of medium black Simplace foam used. Suction placed at -125 mm Hg with no leaks noted. Jael CASTAÑEDA notified of findings. Dr Domínguez
[2018-10-18 12:01] VITALS: BP 125/68
--- NOTE | 2018-10-18 12:42 | PDDCSUM ---
Discharge Summary Discharge Summary: Dates of service: 10/10-10/18/2018 Consultations: general surgery, infectious disease, interventional radiology, urology Procedures performed: lower extremity angiography, LLE wound debridement and wound vac placement Hospital course by problem: 73 yo M with hx of PVD, a fib, CVA presenting with sepsis secondary to cellulitis complicated by PVD requiring IR angio evaluation and discovery of possible bladder mass requiring further evaluation by urology. * Severe sepsis due to cellulitis LLE -resolved -s/p Zyvox * LLE wound s/p I&D -wound vac in place, s/p debridement -will need ongoing wound care at LTAC per wound care recs -good pain control with gabapentin * PVD -CTA showing stenosis however IR angiography without findings of high grade stenosis requiring intervention * Bladder mass - per Dr. Clark looks like transitional cell bladder cancer -urology consulted --they plan to have patient f/u in the next 2 weeks for cystoscopy and perhaps biopsy to be performed in the future * h/o CVA - embolic from afib -this occurred while briefly off anticoagulation for procedure -resumed on xarelto, if any discontinuation of AC is required he should be bridged in the future * Afib -coreg, dilt, xarelto * DM II -DC glipizide * CAD/CABG/stents -ASA, statin * Metabolic encephalopathy -improved * Prolonged QT -watch meds closely * DC to LTAC today Items for follow up: --ongoing wound care --f/u of ? bladder mass--cystoscopy in 2 weeks --continued pt/ot > 35 min spent in dc more than half in coordination of care
--- NOTE | 2018-10-18 12:42 | PDIAF ---
- Diagnosis Diagnosis: wound Code Status: Full Code - Medication Management Discharge Medications: electronically signed and located in the Home Medication List. - Orders Services needed: Registered Nurse, Certified Sack Maker, Physical Therapy, Occupational Therapy Diet Recommendation: no restrictions on diet Additional Instructions: Wound Care: Wound vac to remain in place at -125mmHg continuous suction. White foam to cover any exposed tendon. Black block or simplace foam otherwise. Vac changes to be completed every Tue/Tue/Tue. Next vac change Tuesday, 10/16. - Labs/Radiology BMP Date: 10/25/18 CBC w/diff Date: 10/25/18 FBS Date: 10/18/18 (achs/daily) - Follow Up Care Current Providers and Referrals: WHITNEY CROUCH MD [Other] Whitney Smith MD [Medical Doctor] - follow up in 2 weeks (schedule appointment for cystogram in 2-3 weeks) Ary Flroes MD [Medical Doctor] - (to be arranged with Dr. Flores)
--- NOTE | 2018-10-18 14:13 | ASMTCMCOM ---
CM Note CM Note Notes: Pts case discussed w/ Dr. Domínguez. Pt is being d/c'd today to [facility]. CM spoke to Ryley Sheridan. He has a wound vac for pt. Pts will return the hospital wound vac once the new one is reattached since she is an employee at [employer] [facility]. Dr. Domínguez completed doc to doc w/ Dr. Gonzalez. BRIDGER Abrams will call to give report. DC orders sent. Pts will transport pt. CM available for changes. Plan: [facility] Date Signed: 10/18/2018 02:12 PM Electronically Signed By:CELSO Vargas
== END 2018-10-18 14:11 | disposition short-term general hospital (02) | DRG 853 ==
LOC: F3E 12:14
PROVIDERS: ADMIT Hospitalist; ATTEND Hospitalist
PROC: 0KBT0ZZ Excision of Left Lower Leg Muscle, Open Approach (ICD-10-PCS; principal; 2018-10-10 11:00)
DX: A41.9 Sepsis, unspecified organism (principal); G93.41 Metabolic encephalopathy; L03.116 Cellulitis of left lower limb; L97.909 Non-pressure chronic ulcer of unspecified part of unspecified lower leg with unspecified severity; R65.20 Severe sepsis without septic shock; D41.4 Neoplasm of uncertain behavior of bladder; I48.91 Unspecified atrial fibrillation; E11.51 Type 2 diabetes mellitus with diabetic peripheral angiopathy without gangrene; I25.10 Atherosclerotic heart disease of native coronary artery without angina pectoris; E03.9 Hypothyroidism, unspecified; I10 Essential (primary) hypertension; I45.81 Long QT syndrome; K21.9 Gastro-esophageal reflux disease without esophagitis; I25.2 Old myocardial infarction; N40.0 Benign prostatic hyperplasia without lower urinary tract symptoms; Z95.1 Presence of aortocoronary bypass graft; Z86.73 Personal history of transient ischemic attack (TIA), and cerebral infarction without residual deficits
CPT/HCPCS: 85520-90; 97116-GP; 97161-GP; 97166-GO; 97530-GP; 97535-GO; C1760; C1769; C1894; J1170; J1644; J1815; J2060; J2250; J2310; J2405; J2704; J3010; Q9967

== ENCOUNTER 2018-11-03 09:33 | Inpatient (IN) | payer OTHER | END 2018-11-10 10:10 | disposition home health service (06) | LOC: F3E 09:33 ==

== ENCOUNTER 2018-11-17 14:03 | Emergency (ER) | payer OTHER | END 2018-11-17 17:36 | disposition home or self-care (01) ==